=== PATIENT | male | born 1930 | race Caucasian/White ===

== ENCOUNTER 2017-02-04 08:15 | Inpatient (IN) | payer MEDICARE ==
[2017-02-04] MEDS ORDERED: NS 0.9% 1000 ML* 1,000 ML IV ONE (08:37)
--- NOTE | 2017-02-04 09:06 | RAD ---
HISTORY: Weakness COMPARISONS: January 31, 2015 VIEWS:1: Single frontal portable view of the chest at 8:50 AM FINDINGS: LINES AND TUBES: None. CARDIOMEDIASTINAL SILHOUETTE: The cardiomediastinal silhouette is normal for portable technique. PLEURA: The costophrenic angles are sharp. No pleural abnormalities are noted. LUNG PARENCHYMA: There is questionable nodular opacification of left lung base ABDOMEN: The upper abdomen is clear. There is no subphrenic gas. BONES AND SOFT TISSUES: No bone or soft tissue abnormalities are noted. IMPRESSION: QUESTIONABLE NODULAR OPACIFICATION OF LEFT LUNG BASE. WHILE THE DIFFERENTIAL INCLUDES CONSOLIDATION, PULMONARY PARENCHYMAL NEOPLASM IS ALSO WITHIN THE DIFFERENTIAL. RECOMMEND FOLLOW-UP UNTIL RESOLUTION TO EXCLUDE UNDERLYING PULMONARY PARENCHYMAL PATHOLOGY IF THE CLINICAL PRESENTATION IS NOT CONSISTENT WITH PNEUMONIA, OR THERE IS CLINICAL SUSPICION OF NEOPLASM, RECOMMEND CONSIDERATION OF CORRELATION WITH CT OF THE CHEST
[2017-02-04 09:15] LABS: Hematocrit 47 % (42-52); Hemoglobin 15.4 g/dl (14.0-18.0); Mean Corpuscular HGB Conc 33 g/dl (31-36); Mean Corpuscular Hemoglobin 31 pg (27-31); Mean Corpuscular Volume 96 fL (80-94); Mean Platelet Volume 8 um3 (7.4-10.4); Red Blood Count 4.91 10^6/ul (4.0-5.4); Red Cell Distribution Width 14 % (10.5-15); White Blood Count 23.3 10^3/ul (3.5-10.8)
[2017-02-04 09:21] LABS: Add Diff/Slide Review? Slide Review Added; Comments Flag Yes
[2017-02-04 09:28] LABS: Albumin 3.8 g/dL (3.2-5.2); Calcium 9.2 mg/dL (8.6-10.3); EGFR African American 49.7 (>60); EGFR Non-African American 38.7 (>60); Globulin 3.1 g/dL (2-4); Potassium 4.7 mmol/L (3.5-5.0); Total Protein 6.9 g/dL (6.4-8.9)
[2017-02-04 09:29] LABS: C Reactive Protein 59.46 mg/L (< 5.00); Total Bilirubin 0.9 mg/dL (0.2-1.0)
[2017-02-04] MEDS ORDERED: Levofloxacin 750 MG IVPREMIX(* 750 MG/150 ML BAG IVPB ONE ×2 (09:48→12:42)
[2017-02-04 09:52] LABS: Troponin I 0.3 ng/mL (<0.04)
[2017-02-04] MEDS ORDERED: Aspirin Low Dose CHEW TAB* 81 MG PO ONE (10:17)
--- NOTE | 2017-02-04 10:55 | RAD ---
HISTORY: Abnormal chest x-ray, mass COMPARISONS: Chest x-ray dated February 04, 2017 TECHNIQUE: Multiple contiguous axial CT scans of the chest were obtained without intravenous contrast. Coronal and sagittal multiplanar reformations are also submitted for review. FINDINGS: The study is limited by the lack of intravenous contrast. This limits evaluation of the solid organs and vasculature. NECK AND THYROID: The lower neck and thyroid are unremarkable. CHEST WALL: There is no lower cervical, axillary, or supraclavicular lymphadenopathy by size criteria. HEART AND PERICARDIUM: The heart is unremarkable. AORTA AND PULMONARY VASCULATURE: The aorta and pulmonary vasculature are normal. MEDIASTINUM: There is no mediastinal lymphadenopathy by size criteria. STEPHEN: There is no hilar lymphadenopathy by size criteria. AIRWAY AND ESOPHAGUS: The airway is unremarkable, without endobronchial filling defect. The esophagus is grossly normal. LUNG PARENCHYMA: There is a spiculated nodule along the left lung base corresponding to the plain film finding. This measures approximately 2.6 cm in size PLEURA: No pleural abnormalities are noted. UPPER ABDOMEN: The patient is status post cholecystomy. There is a moderate-sized sliding hiatal hernia BONES AND SOFT TISSUES: Degenerative changes are noted along the spine. OTHER: None. IMPRESSION: 2.6 CM SPICULATED NODULE OF THE LEFT LUNG BASE CORRESPONDING TO THE PLAIN FILM FINDING, CONCERNING FOR NEOPLASM. RECOMMEND CONSIDERATION OF CORRELATION WITH PET/CT AND/OR TISSUE SAMPLING.
[2017-02-04 11:51] LABS: Eosinophils % 1 % (0-6); Immature Granulocytes 10 % (0-9); Metamyelocytes % 1 % (0-2); Neutrophil % 88 % (38-83); RBC Morphology Normal (Normal)
[2017-02-04] MEDS ORDERED: NS 0.9% 1000 ML* 1,000 ML IV SCH (12:15)
[2017-02-04] MEDS ORDERED: Albuterol HFA INHALER* 8 gm MDI INH PRN (12:40)
[2017-02-04] MEDS ORDERED: Aspirin EC TAB* 325 MG PO ONE (12:42)
[2017-02-04] MEDS: Heparin VIAL(*) 5000 UNITS/ML VIAL (FIVE THOUSAND) SUBCUT SCH ×2 (13:18→21:40)
[2017-02-04 13:47] LABS: Erythrocyte Sed Rate 22 mm/Hr (0-40)
[2017-02-04 16:02] LABS: Urine Bacteria 1+ (Absent); Urine Bilirubin Negative (Negative); Urine Glucose Negative (Negative); Urine Nitrite Negative (Negative)
--- NOTE | 2017-02-04 17:13 | ED ---
Mike Quintanilla Billy, scribed for Nadir Goodrich MD on 02/04/17 at 0921 . Complex/Multi-Sys Presentation - HPI Summary HPI Summary: Patient is an 86 year-old male coming to [facility] for evaluation of weakness since yesterday afternoon. He states that he had cold-like symptoms 3 days ago. Yesterday afternoon, he felt like he was "totally drained of strength." He felt nauseated but had no abdominal pain, vomiting, diarrhea, or constipation. Denies fevers, chills, chest pain, or shortness of breath. Denies URI symptoms at this time. Positive edema to the lower extremities. He woke up with a dry mouth this morning. - History Of Current Complaint Chief Complaint: EDGeneral Time Seen by Provider: 02/04/17 08:20 Hx Obtained From: Patient Onset/Duration: Gradual Onset Timing: Constant Severity Currently: Moderate Severity Initially: Moderate Aggravating Factor(s): none Alleviating Factor(s): none Associated Signs And Symptoms: Positive: Weakness, Nausea. Negative: SOB, Chest Pain, Vomiting, Diarrhea, Abdominal Pain, Fever - Allergies/Home Medications Allergies/Adverse Reactions: Allergies Allergy/AdvReac Type Severity Reaction Status Date / Time Atorvastatin [From Lipitor] Allergy Unknown Unknown Verified 09/19/13 00:12 Reaction Details Clopidogrel Allergy Rash Verified 09/17/13 14:21 Home Medications: Home Medications Mometasone 220 MCG MDI * [Asmanex 220 MCG MDI *] 1 puff INH BID 02/04/17 [ History Confirmed 02/04/17] PMH/Surg Hx/FS Hx/Imm Hx Cardiovascular History: Reports: Hx Coronary Artery Disease, Hx Hypertension Denies: Hx Congestive Heart Failure Respiratory History: Reports: Hx Asthma History: Reports: Hx Kidney Stones Musculoskeletal History: Reports: Hx Arthritis - Surgical History Surgery Procedure, Year, and Place: cholecystectomy. tonsillectomy. right cataract removal Infectious Disease History: No Infectious Disease History: Denies: Traveled Outside the [place] in Last 30 Days - Family History Family History: His father at age 88 of congestive heart failure, only had initial symptoms of heart disease maybe one year earlier. No one else in the family has heart disease. His mother of some cancer at age 42. - Social History Alcohol Use: None Substance Use Type: Reports: None Smoking Status (MU): Never Smoked Tobacco Review of Systems Constitutional: Other - dry mouth Negative: Fever, Chills Negative: Sore Throat, Ear Ache, Nasal Discharge Negative: Chest Pain Negative: Shortness Of Breath, Cough Positive: Nausea. Negative: Vomiting, Diarrhea Positive: Edema Positive: Weakness All Other Systems Reviewed And Are Negative: Yes Physical Exam - Summary Physical Exam Summary: VITAL SIGNS: Reviewed. GENERAL: Patient is an elderly fragile male who is lying comfortable in the stretcher. Patient is not in any acute respiratory distress. HEAD AND FACE: No signs of trauma. No ecchymosis, hematomas or skull depressions. No sinus tenderness. EYES: PERRLA, EOMI x 2, No injected conjunctiva, no nystagmus. EARS: Hearing grossly intact. Ear canals and tympanic membranes are within normal limits. MOUTH: Oropharynx within normal limits. NECK: Supple, trachea is midline, no adenopathy, no JVD, no carotid bruit, no c- spine tenderness, neck with full ROM. CHEST: Symmetric, no tenderness at palpation LUNGS: Clear to auscultation bilaterally. No wheezing or crackles. CVS: Regular rate and rhythm, S1 and S2 present, no murmurs or gallops appreciated. ABDOMEN: Soft, non-tender. No signs of distention. No rebound no guarding, and no masses palpated. Bowel sounds are normal. EXTREMITIES: FROM in all major joints, no edema, no cyanosis or clubbing. NEURO: Alert and oriented x 3. No acute neurological deficits. Speech is normal and follows commands. SKIN: Dry and warm Triage Information Reviewed: Yes Vital Signs On Initial Exam: Initial Vitals Temp Pulse Resp BP Pulse Ox 98.1 F 77 18 99/46 94 02/04/17 08:16 02/04/17 08:16 02/04/17 08:16 02/04/17 08:16 02/04/17 08:16 Vital Signs Reviewed: Yes - [place] Coma Scale Coma Scale Total: 15 Diagnostics - Vital Signs Vital Signs Temp Pulse Resp BP Pulse Ox 02/04/17 08:22 98.1 F 77 18 99/46 94 02/04/17 08:16 98.1 F 77 18 99/46 94 - Laboratory Lab Results: Lab Results 02/04/17 02/04/17 02/04/17 Range/Units 09:00 09:00 09:00 WBC 23.3 H (3.5-10.8) 10^3/ul RBC 4.91 (4.0-5.4) 10^6/ul Hgb 15.4 (14.0-18.0) g/dl Hct 47 (42-52) % MCV 96 H (80-94) fL MCH 31 (27-31) pg MCHC 33 (31-36) g/dl RDW 14 (10.5-15) % Plt Count 192 (150-450) 10^3/ul MPV 8 (7.4-10.4) um3 Neut % (Auto) 92.7 H (38-83) % Lymph % (Auto) 1.5 L (25-47) % Ferry % (Auto) 5.5 (1-9) % Eos % (Auto) 0 (0-6) % Baso % (Auto) 0.3 (0-2) % Absolute Neuts (auto) 21.6 H (1.5-7.7) 10^3/ul Absolute Lymphs (auto) 0.4 L (1.0-4.8) 10^3/ul Absolute Monos (auto) 1.3 H (0-0.8) 10^3/ul Absolute Eos (auto) 0 (0-0.6) 10^3/ul Absolute Basos (auto) 0.1 (0-0.2) 10^3/ul Absolute Nucleated RBC 0 10^3/ul Nucleated RBC % 0 ESR Pending INR (Anticoag Therapy) 1.02 (0.89-1.11) APTT 29.2 (26.0-36.3) seconds Sodium 137 (133-145) mmol/L Potassium 4.7 (3.5-5.0) mmol/L Chloride 100 L (101-111) mmol/L Carbon Dioxide 28 (22-32) mmol/L Anion Gap 9 (2-11) mmol/L BUN 27 H (6-24) mg/dL Creatinine 1.69 H (0.67-1.17) mg/dL Est GFR ( Amer) 49.7 (>60) Est GFR (Non-Af Amer) 38.7 (>60) BUN/Creatinine Ratio 16.0 (8-20) Glucose 132 H (70-100) mg/dL Lactic Acid (0.5-2.0) mmol/L Calcium 9.2 (8.6-10.3) mg/dL Total Bilirubin 0.90 (0.2-1.0) mg/dL AST 25 (13-39) U/L ALT 21 (7-52) U/L Alkaline Phosphatase 77 (34-104) U/L Total Creatine Kinase 172 (10-223) U/L Troponin I Pending C-Reactive Protein 59.46 H (< 5.00) mg/L B-Natriuretic Peptide ( - 100) pg/mL Total Protein 6.9 (6.4-8.9) g/dL Albumin 3.8 (3.2-5.2) g/dL Globulin 3.1 (2-4) g/dL Albumin/Globulin Ratio 1.2 (1-3) 02/04/17 02/04/17 Range/Units 09:00 09:00 WBC (3.5-10.8) 10^3/ul RBC (4.0-5.4) 10^6/ul Hgb (14.0-18.0) g/dl Hct (42-52) % MCV (80-94) fL MCH (27-31) pg MCHC (31-36) g/dl RDW (10.5-15) % Plt Count (150-450) 10^3/ul MPV (7.4-10.4) um3 Neut % (Auto) (38-83) % Lymph % (Auto) (25-47) % Ferry % (Auto) (1-9) % Eos % (Auto) (0-6) % Baso % (Auto) (0-2) % Absolute Neuts (auto) (1.5-7.7) 10^3/ul Absolute Lymphs (auto) (1.0-4.8) 10^3/ul Absolute Monos (auto) (0-0.8) 10^3/ul Absolute Eos (auto) (0-0.6) 10^3/ul Absolute Basos (auto) (0-0.2) 10^3/ul Absolute Nucleated RBC 10^3/ul Nucleated RBC % ESR INR (Anticoag Therapy) (0.89-1.11) APTT (26.0-36.3) seconds Sodium (133-145) mmol/L Potassium (3.5-5.0) mmol/L Chloride (101-111) mmol/L Carbon Dioxide (22-32) mmol/L Anion Gap (2-11) mmol/L BUN (6-24) mg/dL Creatinine (0.67-1.17) mg/dL Est GFR ( Amer) (>60) Est GFR (Non-Af Amer) (>60) BUN/Creatinine Ratio (8-20) Glucose (70-100) mg/dL Lactic Acid 1.9 (0.5-2.0) mmol/L Calcium (8.6-10.3) mg/dL Total Bilirubin (0.2-1.0) mg/dL AST (13-39) U/L ALT (7-52) U/L Alkaline Phosphatase (34-104) U/L Total Creatine Kinase (10-223) U/L Troponin I C-Reactive Protein (< 5.00) mg/L B-Natriuretic Peptide 173 H ( - 100) pg/mL Total Protein (6.4-8.9) g/dL Albumin (3.2-5.2) g/dL Globulin (2-4) g/dL Albumin/Globulin Ratio (1-3) Result Diagrams: 02/04/17 09:00 02/04/17 09:00 Lab Statement: Any lab studies that have been ordered have been reviewed, and results considered in the medical decision making process. - Radiology CXR Radiology Interpretation Completed By: Radiologist - QUESTIONABLE NODULAR OPACIFICATION OF LEFT LUNG BASE. WHILE THE DIFFERENTIAL INCLUDES CONSOLIDATION, PULMONARY PARENCHYMAL NEOPLASM IS ALSO WITHIN THE DIFFERENTIAL. RECOMMEND FOLLOW -UP UNTIL RESOLUTION TO EXCLUDE UNDERLYING PULMONARY PARENCHYMAL PATHOLOGY IF THE CLINICAL PRESENTATION IS NOT CONSISTENT WITH PNEUMONIA, OR THERE IS CLINICAL SUSPICION OF NEOPLASM, RECOMMEND CONSIDERATION OF CORRELATION WITH CT OF THE CHEST - EKG 0953 EKG Interpretation: NSR 70 bpm, no STEMI Complex Multi-Symp Course/Dx Assessment/Plan: Patient is an 86 year-old male coming to [facility] for evaluation of weakness since yesterday afternoon. He states that he had cold-like symptoms 3 days ago. Yesterday afternoon, he felt like he was "totally drained of strength." He felt nauseated but had no abdominal pain, vomiting, diarrhea, or constipation. Denies fevers, chills, chest pain, or shortness of breath. Denies URI symptoms at this time. Positive edema to the lower extremities. He woke up with a dry mouth this morning. Bloodwork shows WBC of 23.3 with 9 bands and acute renal failure with BUN of 27 and creatinine of 1.69. The patient's troponin was 0.30 and BNP 173. Influenza A and B are negative. CXR shows findings as read by the radiologist: "Questionable nodular opacification of left lung base. While the differential includes consolidation, pulmonary parenchymal neoplasm is also within the differential. Recommend follow-up until resolution to exclude underlying pulmonary parenchymal pathology if the clinical presentation is not consistent with pneumonia, or there is clinical suspicion of neoplasm, recommend consideration of correlation with CT of the chest." In the ED course, the patient was given levaquin for pneumonia and also ASA for the acute troponin. I discussed my physical exam findings with Dr. Turner who accepted the patient for admission. I have asked multiple times for the patient to produce a urine sample, however he has not been able to do so. I asked the patient if we could get a cath urine, however the patient declined. He is hemodynamically stable, A&Ox3. - Diagnoses Differential Diagnoses/HQI/PQRI: Other - Pneumonia, Bronchitis Provider Diagnoses: Pneumonia, Increase troponin r/o ACS, Renal insufficiency - Physician Notifications Discussed Care Of Patient With: Dr. Turner (hospitalist) at 1015: accepts admission. Discharge - Discharge Plan Condition: Stable Disposition: ADMITTED TO [facility] documentation as recorded by the Mike bolton Billy accurately reflects the service I personally performed and the decisions made by me, Nadir Goordich MD.
--- NOTE | 2017-02-04 17:33 | HP ---
HISTORY AND PHYSICAL: DATE OF ADMISSION: 02/04/17 PRIMARY CARE PROVIDER: Gwyn Ghosh MD ATTENDING PHYSICIAN: Meng Turner MD* (dictated by Kenyatta Leos NP) CHIEF COMPLAINT: Weakness. HISTORY OF PRESENT ILLNESS: Mr. Hogue is an 86-year-old male with past medical history significant for coronary artery disease, who presented to the emergency room with complaints of weakness and cold symptoms that started 3 days ago. The patient reports his cold symptoms as a runny nose and sneezing. Yesterday, he reports nausea and chills. He also had a temperature of 101 at home. The patient states that normally, he has some difficulty with ambulation and normally walks with a walker, but has felt too weak to be ambulating with his walker this week. The patient denies any recent sick contacts or people with similar symptoms. He denies any chest pain, cough, shortness of breath, diarrhea, urinary symptoms such as dysuria. He reports some urinary incontinence at baseline. He reports a normal appetite. He denies any recent weight loss. Due to the concern of the patient's continued weakness, he decided to present to the emergency room for further evaluation of his symptoms. While in the emergency room, the patient received IV fluids. He had labs drawn which were significant for a white blood cell count of 23.3. He had 9 bands. He had an elevated BUN and creatinine of 27 and 1.69. The patient was also found to have an elevated troponin of 0.30, CRP of 59.46, and BNP of 173. The patient had a chest x-ray showing a questionable nodular opacification of the left lung base. The patient had an EKG showing normal sinus rhythm with a rate of 70. This EKG was similar to previous EKG from 01/31/15. There are no acute signs of ischemia. Based off the patient's presentation, the hospitalists were asked to evaluate the patient for admission. PAST MEDICAL HISTORY: 1. Coronary artery disease. 2. Hypertension. 3. Hyperlipidemia. 4. Asthma. PAST SURGICAL HISTORY: 1. Status post cholecystectomy. 2. Status post tonsillectomy. 3. Status post right cataract extraction. 4. Status post cardiac catheterization with a stent placement approximately 15 years ago. HOME MEDICATIONS: Include: 1. Simvastatin 20 mg oral daily. 2. Vitamin D 400 units oral daily. 3. Atenolol 12.5 mg oral daily. 4. Aspirin 81 mg oral daily. 5. Albuterol 2 puffs inhalation every 4 hours as needed for shortness of breath or wheeze. 6. Asmanex 220 mcg in 1 puff inhalation twice daily. ALLERGIES: ATORVASTATIN and PLAVIX. FAMILY HISTORY: The patient's father passed from heart failure at age 89. The patient's mother had a history of breast cancer. The patient's son passed from colon cancer. He denies any family history of diabetes mellitus. SOCIAL HISTORY: The patient denies tobacco, alcohol, or recreational drug use. He is a retired photo technologist. He lives with his , Yancy Hogue, who will be his surrogate decision maker in the event he is unable to make decisions for himself. If Yancy is unavailable, his son Wali Hogue will be his surrogate decision maker. REVIEW OF SYSTEMS: I performed a 14-point review of systems. All the pertinent positives and negatives are mentioned in the history of present illness. The remaining review of systems are negative. PHYSICAL EXAMINATION GENERAL APPEARANCE: The patient is alert and pleasant, appears to be in no acute distress. VITAL SIGNS: Temperature 98.1, heart rate 73, respiratory rate 18, O2 sat 97% on room air, blood pressure 112/56. HEENT: Normocephalic, atraumatic. Pupils are equal and reactive to light. Extraocular movements are intact. RESPIRATORY: There is no accessory muscle use and the lungs are clear to auscultation bilaterally. CARDIOVASCULAR: Regular rate and rhythm. S1 and S2 are present. There are no murmurs, rubs, or gallops heard. ABDOMEN: Soft, nontender, nondistended. There are bowel sounds present x4. EXTREMITIES: There is 1 to 2+ bilateral lower extremity edema. MUSCULOSKELETAL: There is no clubbing or cyanosis noted. The patient exhibits good strength in all extremities. NEUROLOGIC: The patient is alert and oriented x4. Cranial nerves II through XII are grossly intact. PSYCHOLOGICAL: The patient is calm and cooperative. SKIN: There are no rashes or abnormalities seen. DIAGNOSTIC STUDIES/LABORATORY DATA: Sodium 137, potassium 4.7, chloride 100, CO2 28, BUN 27, creatinine 1.69, and glucose 132. While blood cell count 23.3, hemoglobin 15.4, hematocrit 96, and platelet count 192. Troponin 0.30, CRP 59.46, BNP 173. Influenza A and B negative. EKG shows a normal sinus rhythm with a rate of 70. There are no signs of acute ischemia. This EKG is similar to previous EKG from 01/31/15. Chest x-ray from today. Radiologist's impression: Questionable nodular opacification of left lung base, the differential includes consolidation. Pulmonary parenchymal neoplasm is also within the differential. Recommend followup until resolution to exclude underlying pulmonary parenchymal pathology. Chest CT from today. A 2.6 cm spiculated nodule of the left lung base corresponding to the plain film findings. Concerning for neoplasm. IMPRESSION: Mr. Hogue is an 86-year-old male with past medical history significant for coronary artery disease, hypertension, hyperlipidemia, and asthma, who presented to the hospital with complaints of weakness. He will be admitted as an observation for weakness and possible lung mass. ASSESSMENT/PLAN: 1. Weakness. We will give the patient IV hydration. We will ask Physical Therapy for an evaluation after we complete trending his troponins. 2. New left lung nodule. The patient will need a fine needle aspiration biopsy for further evaluation of this lung nodule. The patient states that he has never had a colonoscopy. We will check an abdomen and pelvis CT to evaluate for metastatic disease. 3. Acute kidney injury. We will give the patient IV hydration and recheck his labs in the morning. 4. Elevated troponins. The patient denies any chest pain. We will trend his troponins, monitor him on telemetry, and check an echo in the morning. His EKG does not show signs of acute ischemia. The patient is already on aspirin, statin, and beta- lucero. 5. History of coronary artery disease. The patient will be continued on his home statin, beta-lucero, and aspirin. 6. Fluids, electrolytes and nutrition. Heart healthy diet. 7. Code status: Full code. 8. DVT prophylaxis: The patient is at highest risk and will have subcu heparin. 9. Disposition. Observation. TIME SPENT: The time for this admission was 60 minutes and greater than half of that was spent with the patient and his family discussing medications, past medical history, and the events leading up to his arrival today and performing the physical examination. The case has been reviewed with the attending, Dr. Turner, who agrees with the plan of care. Reviewed by KARELY COX 02/04/17 1741 CC: Gwyn Ghosh MD * [id number]/CPS #: [id number] MTDD
[2017-02-04] MEDS ORDERED: Acetaminophen TAB* 325 MG PO PRN (17:48)
--- NOTE | 2017-02-04 18:31 | RAD ---
CLINICAL HISTORY: Left lung nodule COMPARISON: Chest CT dated February 04, 2017 TECHNIQUE: Multiple contiguous axial CT scans were obtained of the abdomen and pelvis, without intravenous contrast enhancement. Coronal and sagittal multiplanar reformations are submitted for review. Oral contrast was administered. FINDINGS: The study is limited by the lack of intravenous contrast. This limits evaluation of the solid organs and vasculature. LUNG BASES: Again noted is a spiculated nodule of the left lung base LIVER: On axial image 11, there is a 0.4 cm in low-attenuation lesion of the left lobe of liver that is too small to definitively characterize BILE DUCTS: Discectomy GALLBLADDER: The gallbladder is not visualized. Surgical clips are noted in the gallbladder fossa. PANCREAS: The pancreas is normal, without mass or ductal dilatation. SPLEEN: Normal in size and appearance. UPPER GI TRACT: Evaluation of the gastrointestinal tract is limited by incomplete gastric distention. There is a moderate-sized sliding hiatal hernia SMALL BOWEL AND MESENTERY: The small bowel is normal in contour, course, and caliber. There is no obstruction or dilatation. COLON: There are multiple diverticula of the sigmoid colon. There is no pericolonic inflammatory change. ADRENALS: Normal bilaterally. KIDNEYS: Multiple renal cysts are noted bilaterally. There is moderate pelvocaliectasis and and hydroureter on the right BLADDER: The bladder is distended. There are multiple small bladder diverticula. PELVIC ORGANS: The prostate gland is markedly enlarged. The seminal vesicles are symmetric. AORTA: There is atherosclerosis of the abdominal aorta without aneurysmal dilatation IVC: Unremarkable LYMPH NODES: There is no lymphadenopathy by size criteria. ABDOMINAL WALL: There is no evidence for abdominal wall hernia. BONES AND SOFT TISSUES: Degenerative changes are noted of the spine OTHER: None IMPRESSION: 1. AGAIN NOTED IS SPICULATED NODULE OF THE LEFT LUNG BASE. 2. THE PROSTATE GLAND IS MARKEDLY ENLARGED. 3. THERE ARE MULTIPLE BLADDER DIVERTICULA. THERE IS RIGHT-SIDED HYDRONEPHROSIS. 4. ATHEROSCLEROSIS. 5. DIVERTICULOSIS. 6. HIATAL HERNIA 7. 0.4 CM LOW-ATTENUATION LESION OF THE LIVER, TOO SMALL TO DEFINITIVELY CHARACTERIZE
[2017-02-04] MEDS: Mometasone 220 MCG MDI INH SCH (21:26)
[2017-02-05] MEDS: Heparin VIAL(*) 5000 UNITS/ML VIAL (FIVE THOUSAND) SUBCUT SCH ×3 (05:08→20:19)
[2017-02-05 06:46] LABS: Hematocrit 42 % (42-52); Hemoglobin 13.8 g/dl (14.0-18.0); Mean Corpuscular HGB Conc 33 g/dl (31-36); Mean Corpuscular Hemoglobin 32 pg (27-31); Mean Corpuscular Volume 97 fL (80-94); Mean Platelet Volume 8 um3 (7.4-10.4); Red Cell Distribution Width 14 % (10.5-15); White Blood Count 11.6 10^3/ul (3.5-10.8)
[2017-02-05 06:57] LABS: BUN/Creatinine Ratio 19.3 (8-20); EGFR African American 64.4 (>60); EGFR Non-African American 50.1 (>60); Potassium 3.7 mmol/L (3.5-5.0)
[2017-02-05] MEDS: Mometasone 220 MCG MDI INH SCH ×2 (08:20→20:04)
[2017-02-05] MEDS: Atenolol TAB* 25 MG PO SCH (09:10)
[2017-02-05] MEDS: Aspirin EC Low Dose* 81 MG TAB.EC PO SCH (09:10)
[2017-02-05] MEDS: SIMVASTATIN 20 MG PO SCH (09:10)
[2017-02-05] MEDS: Cholecalciferol TAB* 400 UNIT PO SCH (09:10)
--- NOTE | 2017-02-05 09:35 | PN ---
Subjective Date of Service: 02/05/17 Interval History: Patient seen and examined at bedside. Offers no acute concerns. Denies CP, SOB, abd pain, n/v, dysuria. He reports that he has noticed a "chandana hue" to his urine on occasion. He states he has BLE edema at baseline. Mr. Hogue initially presented with weakness and URI symptoms, both of which are improving. He reports being able to get OOB with his walker this AM. Family History: Unchanged from Admission Social History: Unchanged from Admission Past Medical History: Unchanged from Admission Objective Active Medications: Acetaminophen (Tylenol Tab*) 650 mg PO Q4H PRN PRN Reason: FEVER/PAIN Albuterol (Ventolin Hfa Inhaler*) 2 puff INH Q4H PRN PRN Reason: WHEEZING Aspirin (Aspirin Ec Low Dose*) 81 mg PO DAILY [facility] Last Admin: 02/05/17 09:10 Dose: 81 mg Atenolol (Tenormin Tab*) 12.5 mg PO DAILY [facility] Last Admin: 02/05/17 09:10 Dose: 12.5 mg Cholecalciferol (Vitamin D Tab*) 400 unit PO DAILY [facility] Last Admin: 02/05/17 09:10 Dose: 400 unit Heparin Sodium (Porcine) (Heparin Vial(*)) 5,000 units SUBCUT Q8HR [facility] Last Admin: 02/05/17 05:08 Dose: 5,000 units Mometasone Furoate (Asmanex 220 Mcg Mdi *) 1 puff INH BID [facility] PRN Reason: Protocol Last Admin: 02/05/17 08:20 Dose: 1 puff Simvastatin (Zocor(Nf)) 20 mg PO DAILY [facility] Last Admin: 02/05/17 09:10 Dose: 20 mg Vital Signs 02/04/17 02/04/17 02/04/17 12:19 16:04 16:44 Temperature 98.5 F 99.1 F 100.0 F Pulse Rate 70 70 81 Respiratory 18 20 26 Rate Blood Pressure 119/57 111/57 (mmHg) O2 Sat by Pulse 97 98 100 Oximetry 02/04/17 02/04/17 02/04/17 20:00 20:39 21:31 Temperature 98.5 F Pulse Rate 74 82 Respiratory 22 22 18 Rate Blood Pressure 102/51 (mmHg) O2 Sat by Pulse 94 91 Oximetry 0502/05/17 02/05/17 00:21 04:31 08:22 Temperature 97.9 F 98.0 F Pulse Rate 66 62 82 Respiratory 16 16 18 Rate Blood Pressure 94/51 104/59 (mmHg) O2 Sat by Pulse 94 96 96 Oximetry Oxygen Devices in Use Now: None Appearance: Elderly male, sitting up in bed, NAD Eyes: PERRLA Ears/Nose/Mouth/Throat: Mucous Membranes Moist Neck: NL Appearance and Movements; NL JVP Respiratory: Symmetrical Chest Expansion and Respiratory Effort, Clear to Auscultation Cardiovascular: NL Sounds; No Murmurs; No JVD, RRR Abdominal: NL Sounds; No Tenderness; No Distention Extremities: - - 1+ BLE edema Neurological: Alert and Oriented x 3 Lines/Tubes/Other Access: Clean, Dry and Intact Peripheral IV Nutrition: Taking PO's Result Diagrams: 02/05/17 06:05 02/05/17 06:05 Additional Lab and Data: Lab Results 02/04/17 02/04/17 02/04/17 Range/Units 09:00 09:00 09:00 WBC 23.3 H (3.5-10.8) 10^3/ul RBC 4.91 (4.0-5.4) 10^6/ul Hgb 15.4 (14.0-18.0) g/dl Hct 47 (42-52) % MCV 96 H (80-94) fL MCH 31 (27-31) pg MCHC 33 (31-36) g/dl RDW 14 (10.5-15) % Plt Count 192 (150-450) 10^3/ul MPV 8 (7.4-10.4) um3 Neut % (Auto) 92.7 H (38-83) % Lymph % (Auto) 1.5 L (25-47) % [place] % (Auto) 5.5 (1-9) % Eos % (Auto) 0 (0-6) % Baso % (Auto) 0.3 (0-2) % Absolute Neuts (auto) 21.6 H (1.5-7.7) 10^3/ul Absolute Lymphs (auto) 0.4 L (1.0-4.8) 10^3/ul Absolute Monos (auto) 1.3 H (0-0.8) 10^3/ul Absolute Eos (auto) 0 (0-0.6) 10^3/ul Absolute Basos (auto) 0.1 (0-0.2) 10^3/ul Absolute Nucleated RBC 0 10^3/ul Nucleated RBC % 0 ESR Pending INR (Anticoag Therapy) 1.02 (0.89-1.11) APTT 29.2 (26.0-36.3) seconds Sodium 137 (133-145) mmol/L Potassium 4.7 (3.5-5.0) mmol/L Chloride 100 L (101-111) mmol/L Carbon Dioxide 28 (22-32) mmol/L Anion Gap 9 (2-11) mmol/L BUN 27 H (6-24) mg/dL Creatinine 1.69 H (0.67-1.17) mg/dL Est GFR ( Amer) 49.7 (>60) Est GFR (Non-Af Amer) 38.7 (>60) BUN/Creatinine Ratio 16.0 (8-20) Glucose 132 H (70-100) mg/dL Lactic Acid (0.5-2.0) mmol/L Calcium 9.2 (8.6-10.3) mg/dL Total Bilirubin 0.90 (0.2-1.0) mg/dL AST 25 (13-39) U/L ALT 21 (7-52) U/L Alkaline Phosphatase 77 (34-104) U/L Total Creatine Kinase 172 (10-223) U/L Troponin I Pending C-Reactive Protein 59.46 H (< 5.00) mg/L B-Natriuretic Peptide ( - 100) pg/mL Total Protein 6.9 (6.4-8.9) g/dL Albumin 3.8 (3.2-5.2) g/dL Globulin 3.1 (2-4) g/dL Albumin/Globulin Ratio 1.2 (1-3) 02/04/17 02/04/17 Range/Units 09:00 09:00 WBC (3.5-10.8) 10^3/ul RBC (4.0-5.4) 10^6/ul Hgb (14.0-18.0) g/dl Hct (42-52) % MCV (80-94) fL MCH (27-31) pg MCHC (31-36) g/dl RDW (10.5-15) % Plt Count (150-450) 10^3/ul MPV (7.4-10.4) um3 Neut % (Auto) (38-83) % Lymph % (Auto) (25-47) % [place] % (Auto) (1-9) % Eos % (Auto) (0-6) % Baso % (Auto) (0-2) % Absolute Neuts (auto) (1.5-7.7) 10^3/ul Absolute Lymphs (auto) (1.0-4.8) 10^3/ul Absolute Monos (auto) (0-0.8) 10^3/ul Absolute Eos (auto) (0-0.6) 10^3/ul Absolute Basos (auto) (0-0.2) 10^3/ul Absolute Nucleated RBC 10^3/ul Nucleated RBC % ESR INR (Anticoag Therapy) (0.89-1.11) APTT (26.0-36.3) seconds Sodium (133-145) mmol/L Potassium (3.5-5.0) mmol/L Chloride (101-111) mmol/L Carbon Dioxide (22-32) mmol/L Anion Gap (2-11) mmol/L BUN (6-24) mg/dL Creatinine (0.67-1.17) mg/dL Est GFR ( Amer) (>60) Est GFR (Non-Af Amer) (>60) BUN/Creatinine Ratio (8-20) Glucose (70-100) mg/dL Lactic Acid 1.9 (0.5-2.0) mmol/L Calcium (8.6-10.3) mg/dL Total Bilirubin (0.2-1.0) mg/dL AST (13-39) U/L ALT (7-52) U/L Alkaline Phosphatase (34-104) U/L Total Creatine Kinase (10-223) U/L Troponin I C-Reactive Protein (< 5.00) mg/L B-Natriuretic Peptide 173 H ( - 100) pg/mL Total Protein (6.4-8.9) g/dL Albumin (3.2-5.2) g/dL Globulin (2-4) g/dL Albumin/Globulin Ratio (1-3) Microbiology and Other Data: Microbiology 02/04/17 11:15 Influenza Types A,B Antigen (JAMILAH) - Final Nasal Specimen received for Influenza A/B Molecular testing Assess/Plan/Problems-Billing Assessment: Mr. Hogue is an 86 yo male with a PMH of CAD, HTN, HLD, and asthma who presented to the ED on 02/04 with concern for weakness and URI symptoms and was found to have concern for lung mass, ALEJANDRINA, and elevated troponins. - Patient Problems (1) Weakness Code(s): R53.1 - WEAKNESS Comment: Improved Appears secondary to dehydration and acute illness PT eval requested (2) Pulmonary nodule, left Code(s): R91.1 - SOLITARY PULMONARY NODULE Comment: CT abd/pelvis negative for other concerning lesions Outpatient follow-up with PCP for FNA of left lower lobe nodule (3) Acute kidney injury Code(s): N17.9 - ACUTE KIDNEY FAILURE, UNSPECIFIED Comment: Improving, suspect acute on chronic injury. Patient endorses drinking very well, making hypovolemia a less likely cause. Will check FENa and renal U/S, as patient has hydronephrosis and bladder distention. (4) Elevated troponin Code(s): R74.8 - ABNORMAL LEVELS OF OTHER SERUM ENZYMES Comment: Echocardiogram pending Patient denies chest pain Troponin peaked at 0.49 (5) CAD (coronary artery disease) Code(s): I25.10 - ATHSCL HEART DISEASE OF [place] CORONARY ARTERY W/O ANG PCTRS Comment: Continue ASA, atenolol, and simvastatin. (6) HTN (hypertension) Code(s): I10 - ESSENTIAL (PRIMARY) HYPERTENSION Comment: Normotensive Continue atenolol. (7) HLD (hyperlipidemia) Code(s): E78.5 - HYPERLIPIDEMIA, UNSPECIFIED Comment: Continue simvastatin. (8) DVT prophylaxis Code(s): [id number] - Comment: SQ heparin (9) Full code status Code(s): Z78.9 - OTHER SPECIFIED HEALTH STATUS
[2017-02-05] MEDS ORDERED: NS 0.9% 500 ML BAG* 500 ML IV ONE (10:36)
[2017-02-05 10:37] LABS: Troponin I 0.31 ng/mL (<0.04)
--- NOTE | 2017-02-05 16:24 | RAD ---
INDICATION: Acute renal failure CT February 04, 2017 COMPARISON: CT February 04, 2017 TECHNIQUE: Longitudinal and transverse scans of the kidneys were obtained. FINDINGS: Kidneys: The kidneys are are echogenic compatible with medical renal disease. There is moderate right-sided hydronephrosis. There is no left-sided hydronephrosis. There are multiple left-sided renal cyst better evaluated on recent CT imaging. The right kidney measures 10.9 x 4.7 x 5.4 cm and the left kidney 10.7 x 5.5 x 6.3 cm. Other: The bladder is distended with a prevoid volume of 1173 mL similar to the prior CT and there is a bladder diverticulum. Earlier CT imaging as also shown marked prostamegaly. There is faint visualization the right ureteral jet. Left ureteral jet is not seen. IMPRESSION: MODERATE RIGHT-SIDED HYDRONEPHROSIS LIKELY ON THE BASIS OF BLADDER OUTLET OBSTRUCTION. NO LEFT-SIDED HYDRONEPHROSIS, HOWEVER. THE BLADDER IS NOTED TO BE DISTENDED.
[2017-02-05] MEDS ORDERED: cefTRIAXone VIAL(*) 1,000 MG in NS 0.9% 50 ML* 50 ML IVPB SCH (20:00)
--- NOTE | 2017-02-05 22:53 | ECHO ---
Patient: DEANGELO HARLEY [facility] Rec#: [id number] : 1930 Date: 02/05/2017 Age: 86y Height: 175.3 cm / 69.0 in Weight: 93 kg / 205.0 lbs Sex: M BSA: 2.1 Room#: 452 Admit Date#: 02/04/2017 Type: Inpatient Referring: Kenyatta Whitaker NP Reading: Nelson Wilson MD Ncqa Specialist: Juliana Avelar RN RDCS CC: Gwyn Ghosh MD Transthoracic Echocardiogram Indication: Elevated troponin levels, SOB BP: 104/59 HR: 70 Rhythm: NSR Findings History: CAD, PCI, HTN, HLD, asthma Technical Comments: The study quality is fair. The study is technically limited due to poor acoustic windows. The study is technically limited due to patient body habitus. Completed at 1400. Left Ventricle: The left ventricular chamber size is normal. Global left ventricular wall motion and contractility are within normal limits. Left ventricular systolic function is at the lower limits of normal. The estimated ejection fraction is 50-55%. The left ventricular diastolic filling pattern is consistent with pseudonormalization. Left Atrium: The left atrial chamber size is normal. Right Ventricle: The right ventricular cavity size is normal. The right ventricular global systolic function is mildly reduced. Right Atrium: The right atrial cavity size is normal. Aortic Valve: The aortic valve structure is not well visualized. The aortic valve leaflets are mildly thickened. There is a trace of aortic regurgitation. There is no evidence of aortic stenosis. Mitral Valve: The mitral valve leaflets are mildly thickened. There is a trace of mitral regurgitation. There is no evidence of mitral stenosis. Tricuspid Valve: The tricuspid valve leaflets are normal. There is trace tricuspid regurgitation. No pulmonary hypertension is noted. Pulmonic Valve: The pulmonic valve structure is not well visualized. Pericardium: There is no significant pericardial effusion. A pericardial fat pad is visualized. Aorta: There is mild dilatation of the ascending aorta. There is no dilatation of the aortic arch. There is mild dilatation of the aortic root. Pulmonary Artery: The main pulmonary artery is not well visualized. Venous: The inferior vena cava is dilated. There is a greater than 50% respiratory change in the inferior vena cava dimension. Conclusions Global left ventricular wall motion and contractility are within normal limits. Left ventricular systolic function is at the lower limits of normal. The estimated ejection fraction is 50-55%. The left ventricular diastolic filling pattern is consistent with pseudonormalization. The aortic valve leaflets are mildly thickened. There is a trace of aortic regurgitation. There is no evidence of aortic stenosis. There is a trace of mitral regurgitation. There is trace tricuspid regurgitation. No pulmonary hypertension is noted. There is no significant pericardial effusion. There is mild dilatation of the ascending aorta. Measurements Name Value Normal Range RVDdMajor (2D) 3.5 cm (2.2 - 4.4) RAd ISD 4CH 5.6 cm (3.4 - 4.9) RA (A4C)W 4.5 cm (2.9 - 4.6) IVSd (2D) 0.9 cm (0.6 - 1) LVPWd (2D) 0.9 cm (0.6 - 1) LVIDd (2D) 4.2 cm (3.6 - 5.4) Aortic Annulus 2.7 cm (1.4 - 2.6) Ao root diameter (2D) 3.6 cm (2.1 - 3.5) Ascending Ao 3.5 cm (2.1 - 3.4) Aortic arch 2.3 cm (1.8 - 3.4) LA dimension (AP) 2D 3.7 cm (2.3 - 3.8) LAd ISD 4CH 5.3 cm (2.9 - 5.3) LA ISD 4CH W 3.9 cm (2.5 - 4.5) Name Value Normal Range LA ESV SP 4CH (A/L) 56 ml - LA ESV SP 2CH (A/L) 60 ml - LA ESV BP (A/L) 59 ml - LA ESV BP (A/L) index 28 ml/m2 - LA ESV SP 4CH (MOD) 54 ml - LA ESV SP 2CH (MOD) 57 ml - Name Value Normal Range MV E-wave Vmax 0.74 m/sec - MV deceleration time 279 msec - MV A-wave Vmax 0.84 m/sec - MV E:A ratio 0.9 ratio - LV septal e' Vmax 0.07 m/sec - LV lateral e' Vmax 0.07 m/sec - LV E:e' septal ratio 10.6 ratio - LV E:e' lateral ratio 10.6 ratio - Name Value Normal Range AV Vmax 1.2 m/sec - AV VTI 26.3 cm - AV peak gradient 6 mmHg - AV mean gradient 3 mmHg - LVOT Vmax 1.1 m/sec - LVOT VTI 25.1 cm - LVOT peak gradient 4.8 mmHg - LVOT mean gradient 2.7 mmHg - LESVIA Vmax 0.52 m/sec - Name Value Normal Range TR Vmax 2.5 m/sec - TR peak gradient 25 mmHg - RAP 8 mmHg - RVSP 33 mmHg - IVC diameter 2.4 cm - Name Value Normal Range PV Vmax 0.6 m/sec -
[2017-02-06] MEDS: Heparin VIAL(*) 5000 UNITS/ML VIAL (FIVE THOUSAND) SUBCUT SCH (05:18)
[2017-02-06 06:54] LABS: Hematocrit 40 % (42-52); Hemoglobin 13.6 g/dl (14.0-18.0); Mean Corpuscular HGB Conc 34 g/dl (31-36); Mean Corpuscular Hemoglobin 32 pg (27-31); Mean Corpuscular Volume 95 fL (80-94); Mean Platelet Volume 8 um3 (7.4-10.4); Red Cell Distribution Width 14 % (10.5-15); White Blood Count 7.2 10^3/ul (3.5-10.8)
[2017-02-06 07:16] LABS: BUN/Creatinine Ratio 20.2 (8-20); Calcium 8.1 mg/dL (8.6-10.3); EGFR African American 82.5 (>60); EGFR Non-African American 64.1 (>60); Potassium 3.8 mmol/L (3.5-5.0)
[2017-02-06] MEDS: Cholecalciferol TAB* 400 UNIT PO SCH (07:24)
[2017-02-06] MEDS: Atenolol TAB* 25 MG PO SCH (07:24)
[2017-02-06] MEDS: SIMVASTATIN 20 MG PO SCH (07:24)
[2017-02-06] MEDS: Aspirin EC Low Dose* 81 MG TAB.EC PO SCH (07:24)
[2017-02-06] MEDS: Mometasone 220 MCG MDI INH SCH (08:05)
--- NOTE | 2017-02-06 09:25 | PN ---
Subjective Date of Service: 02/06/17 Interval History: Patient seen and examined at bedside. Mr. Hogue endorses no new complaints. Denies fever/chills, CP, SOB, abd pain, n/v. Reports that his bladder and stomach feel better after mata inserted. He also reports his legs feel stronger, and he has been doing well with his walker. Family History: Unchanged from Admission Social History: Unchanged from Admission Past Medical History: Unchanged from Admission Objective Active Medications: Acetaminophen (Tylenol Tab*) 650 mg PO Q4H PRN PRN Reason: FEVER/PAIN Albuterol (Ventolin Hfa Inhaler*) 2 puff INH Q4H PRN PRN Reason: WHEEZING Aspirin (Aspirin Ec Low Dose*) 81 mg PO DAILY [facility] Last Admin: 02/06/17 07:24 Dose: 81 mg Atenolol (Tenormin Tab*) 12.5 mg PO DAILY [facility] Last Admin: 02/06/17 07:24 Dose: 12.5 mg Cholecalciferol (Vitamin D Tab*) 400 unit PO DAILY [facility] Last Admin: 02/06/17 07:24 Dose: 400 unit Heparin Sodium (Porcine) (Heparin Vial(*)) 5,000 units SUBCUT Q8HR [facility] Last Admin: 02/06/17 05:18 Dose: 5,000 units Ceftriaxone Sodium 1,000 mg/ (Sodium Chloride) 50 mls @ 200 mls/hr IVPB Q24H [facility] Last Admin: 02/05/17 20:19 Dose: 200 mls/hr Mometasone Furoate (Asmanex 220 Mcg Mdi *) 1 puff INH BID [facility] PRN Reason: Protocol Last Admin: 02/06/17 08:05 Dose: 1 puff Simvastatin (Zocor(Nf)) 20 mg PO DAILY [facility] Last Admin: 02/06/17 07:24 Dose: 20 mg Vital Signs 02/05/17 02/05/17 02/05/17 11:40 16:40 20:00 Temperature 98.1 F 98.1 F Pulse Rate 63 61 Respiratory 16 20 18 Rate Blood Pressure 131/64 128/68 (mmHg) O2 Sat by Pulse 97 96 Oximetry 02/05/17 02/05/17 02/05/17 20:16 22:45 22:56 Temperature 98.6 F 98.2 F 98.2 F Pulse Rate 61 62 62 Respiratory 18 18 18 Rate Blood Pressure 136/63 119/58 119/58 (mmHg) O2 Sat by Pulse 95 95 95 Oximetry 02/05/17 02/06/17 02/06/17 23:34 07:14 08:06 Temperature 97.8 F 97.6 F Pulse Rate 61 57 56 Respiratory 16 16 16 Rate Blood Pressure 125/35 138/60 (mmHg) O2 Sat by Pulse 94 98 98 Oximetry 02/06/17 09:05 Temperature Pulse Rate Respiratory 18 Rate Blood Pressure (mmHg) O2 Sat by Pulse Oximetry Oxygen Devices in Use Now: None Appearance: Elderly male, lying in bed, NAD Eyes: PERRLA Ears/Nose/Mouth/Throat: Mucous Membranes Moist Neck: NL Appearance and Movements; NL JVP Respiratory: Symmetrical Chest Expansion and Respiratory Effort, Clear to Auscultation Cardiovascular: NL Sounds; No Murmurs; No JVD, RRR Abdominal: NL Sounds; No Tenderness; No Distention Extremities: - - +1 BLE edema Neurological: Alert and Oriented x 3, NL Muscle Strength and Tone Lines/Tubes/Other Access: Clean, Dry and Intact Peripheral IV Nutrition: Taking PO's Result Diagrams: 02/06/17 06:32 02/06/17 06:32 Additional Lab and Data: Lab Results 02/04/17 02/04/17 02/04/17 Range/Units 09:00 09:00 09:00 WBC 23.3 H (3.5-10.8) 10^3/ul RBC 4.91 (4.0-5.4) 10^6/ul Hgb 15.4 (14.0-18.0) g/dl Hct 47 (42-52) % MCV 96 H (80-94) fL MCH 31 (27-31) pg MCHC 33 (31-36) g/dl RDW 14 (10.5-15) % Plt Count 192 (150-450) 10^3/ul MPV 8 (7.4-10.4) um3 Neut % (Auto) 92.7 H (38-83) % Lymph % (Auto) 1.5 L (25-47) % [place] % (Auto) 5.5 (1-9) % Eos % (Auto) 0 (0-6) % Baso % (Auto) 0.3 (0-2) % Absolute Neuts (auto) 21.6 H (1.5-7.7) 10^3/ul Absolute Lymphs (auto) 0.4 L (1.0-4.8) 10^3/ul Absolute Monos (auto) 1.3 H (0-0.8) 10^3/ul Absolute Eos (auto) 0 (0-0.6) 10^3/ul Absolute Basos (auto) 0.1 (0-0.2) 10^3/ul Absolute Nucleated RBC 0 10^3/ul Nucleated RBC % 0 ESR Pending INR (Anticoag Therapy) 1.02 (0.89-1.11) APTT 29.2 (26.0-36.3) seconds Sodium 137 (133-145) mmol/L Potassium 4.7 (3.5-5.0) mmol/L Chloride 100 L (101-111) mmol/L Carbon Dioxide 28 (22-32) mmol/L Anion Gap 9 (2-11) mmol/L BUN 27 H (6-24) mg/dL Creatinine 1.69 H (0.67-1.17) mg/dL Est GFR ( Amer) 49.7 (>60) Est GFR (Non-Af Amer) 38.7 (>60) BUN/Creatinine Ratio 16.0 (8-20) Glucose 132 H (70-100) mg/dL Lactic Acid (0.5-2.0) mmol/L Calcium 9.2 (8.6-10.3) mg/dL Total Bilirubin 0.90 (0.2-1.0) mg/dL AST 25 (13-39) U/L ALT 21 (7-52) U/L Alkaline Phosphatase 77 (34-104) U/L Total Creatine Kinase 172 (10-223) U/L Troponin I Pending C-Reactive Protein 59.46 H (< 5.00) mg/L B-Natriuretic Peptide ( - 100) pg/mL Total Protein 6.9 (6.4-8.9) g/dL Albumin 3.8 (3.2-5.2) g/dL Globulin 3.1 (2-4) g/dL Albumin/Globulin Ratio 1.2 (1-3) 02/04/17 02/04/17 Range/Units 09:00 09:00 WBC (3.5-10.8) 10^3/ul RBC (4.0-5.4) 10^6/ul Hgb (14.0-18.0) g/dl Hct (42-52) % MCV (80-94) fL MCH (27-31) pg MCHC (31-36) g/dl RDW (10.5-15) % Plt Count (150-450) 10^3/ul MPV (7.4-10.4) um3 Neut % (Auto) (38-83) % Lymph % (Auto) (25-47) % [place] % (Auto) (1-9) % Eos % (Auto) (0-6) % Baso % (Auto) (0-2) % Absolute Neuts (auto) (1.5-7.7) 10^3/ul Absolute Lymphs (auto) (1.0-4.8) 10^3/ul Absolute Monos (auto) (0-0.8) 10^3/ul Absolute Eos (auto) (0-0.6) 10^3/ul Absolute Basos (auto) (0-0.2) 10^3/ul Absolute Nucleated RBC 10^3/ul Nucleated RBC % ESR INR (Anticoag Therapy) (0.89-1.11) APTT (26.0-36.3) seconds Sodium (133-145) mmol/L Potassium (3.5-5.0) mmol/L Chloride (101-111) mmol/L Carbon Dioxide (22-32) mmol/L Anion Gap (2-11) mmol/L BUN (6-24) mg/dL Creatinine (0.67-1.17) mg/dL Est GFR ( Amer) (>60) Est GFR (Non-Af Amer) (>60) BUN/Creatinine Ratio (8-20) Glucose (70-100) mg/dL Lactic Acid 1.9 (0.5-2.0) mmol/L Calcium (8.6-10.3) mg/dL Total Bilirubin (0.2-1.0) mg/dL AST (13-39) U/L ALT (7-52) U/L Alkaline Phosphatase (34-104) U/L Total Creatine Kinase (10-223) U/L Troponin I C-Reactive Protein (< 5.00) mg/L B-Natriuretic Peptide 173 H ( - 100) pg/mL Total Protein (6.4-8.9) g/dL Albumin (3.2-5.2) g/dL Globulin (2-4) g/dL Albumin/Globulin Ratio (1-3) Microbiology and Other Data: Microbiology 02/04/17 11:15 Influenza Types A,B Antigen (JAMILAH) - Final Nasal Specimen received for Influenza A/B Molecular testing Assess/Plan/Problems-Billing Assessment: Mr. Hogue is an 86 yo male with a PMH of CAD, HTN, HLD, and asthma who presented to the ED on 02/04 with concern for weakness and URI symptoms and was found to have concern for lung mass, ALEJANDRINA, and elevated troponins. - Patient Problems (1) Weakness Code(s): R53.1 - WEAKNESS Comment: Improved Appears secondary to dehydration and acute illness No acute rehab needs, patient will be referred for home PT. (2) Bladder outlet obstruction Code(s): N32.0 - BLADDER-NECK OBSTRUCTION Comment: Renal US shows right sided hydronephrosis on the basis of bladder outlet obstruction. Patient with acute urinary retention. Mata catheter placed. [facility] called and outpatient referral for follow-up requested. (3) Acute urinary retention Code(s): R33.8 - OTHER RETENTION OF URINE Comment: Patient reports urinary frequency, dribbling, and incontinence. Patient's PVR last evening was >700mL. Mata catheter placed. Patient will be discharged to home with catheter and will follow-up with Urology. (4) Pulmonary nodule, left Code(s): R91.1 - SOLITARY PULMONARY NODULE Comment: CT abd/pelvis negative for other concerning lesions Outpatient follow-up with PCP for FNA of left lower lobe nodule (5) Acute kidney injury Code(s): N17.9 - ACUTE KIDNEY FAILURE, UNSPECIFIED Comment: Resolved. Urine sodium and urine creatinine still pending but suspect secondary to hypovolemia and bladder outlet obstruction/urinary retention. (6) Elevated troponin Code(s): R74.8 - ABNORMAL LEVELS OF OTHER SERUM ENZYMES Comment: Echocardiogram shows preserved EF 50-55% with systolic function on lower end of normal. Patient has no wall motion abnormalities or hypokinesis. Patient denies chest pain. Suspect secondary to demand ischemia and slow resolution secondary to ALEJANDRINA. (7) CAD (coronary artery disease) Code(s): I25.10 - ATHSCL HEART DISEASE OF [place] CORONARY ARTERY W/O ANG PCTRS Comment: Continue ASA, atenolol, and simvastatin. (8) HTN (hypertension) Code(s): I10 - ESSENTIAL (PRIMARY) HYPERTENSION Comment: Normotensive Continue atenolol. (9) HLD (hyperlipidemia) Code(s): E78.5 - HYPERLIPIDEMIA, UNSPECIFIED Comment: Continue simvastatin. (10) DVT prophylaxis Code(s): [id number] - Comment: SQ heparin (11) Full code status Code(s): Z78.9 - OTHER SPECIFIED HEALTH STATUS Status and Disposition: Inpatient admission. D/c to home.
[2017-02-06] MEDS ORDERED: Tamsulosin CAP* 0.4 MG PO SCH (10:00)
[2017-02-06] MEDS ORDERED: ceFUROXime TAB(*) 250 MG PO ONE (10:40)
[2017-02-06 11:13] LABS: Urine Bacteria Absent (Absent); Urine Bilirubin Negative (Negative); Urine Glucose Negative (Negative); Urine Nitrite Negative (Negative)
[2017-02-06 11:39] VITALS: BP 119/69
--- NOTE | 2017-02-08 10:48 | DS ---
MEDICINE DISCHARGE SUMMARY: DATE OF ADMISSION: 02/04/17 DATE OF DISCHARGE: 02/06/17 PRIMARY CARE PHYSICIAN: Gwyn Ghosh MD PROVIDER: Cortney Serna NP ATTENDING PHYSICIAN: Lian Gross MD* (dictated by Cortney Serna NP) PRIMARY DISCHARGE DIAGNOSES: 1. Urinary retention secondary to bladder outlet obstruction. 2. Weakness secondary to upper respiratory infection and dehydration. 3. Left lower lobe pulmonary nodule. 4. Acute kidney injury. SECONDARY DISCHARGE DIAGNOSES: 1. Coronary artery disease. 2. Hypertension. 3. Hyperlipidemia. 4. Asthma. MEDICATIONS AT DISCHARGE: 1. Asmanex 1 puff inhaled b.i.d. 2. Simvastatin 20 mg daily. 3. Cholecalciferol 400 units daily. 4. Atenolol 12.5 mg daily. 5. Aspirin 81 mg daily. 6. Albuterol inhaler 2 puffs inhaled q.4 hours p.r.n. 7. Cefuroxime 250 mg b.i.d. This is a new medication. 8. Tamsulosin 0.4 mg at bedtime. This is a new medication. HOSPITAL COURSE OF STAY: For full details, please refer to the H and P provided by Dr. Turner on 02/04/17. In summary, Mr. Hogue is an 86-year-old male presented to the hospital with concern for weakness. The patient reported fever at home. He also states that he had difficulty with ambulation and normally walks with a walker and felt too weak to ambulate independently with his walker. In the ER, the patient did have leukocytosis with a white blood cell count of 23,000 and 9 bands. His BUN and creatinine were also elevated as well as his troponin. Based on these findings, hospital medicine was consulted for admission. The patient was admitted and started on IV hydration. His renal function responded well to IV hydration. In regards to his troponin, the patient did have concerns for ischemia, but his EKG did not show the ischemic changes. His trops did peak at 0.49. We did obtain an echocardiogram, which showed that the patient had a preserved EF of 50% to 55%. No wall motion abnormalities or hypokinesis were seen. The patient does have a left ventricular diastolic sling pattern that is consistent with pseudonormalization. His left ventricular systolic function is at the lower limits of normal. There is no evidence of aortic stenosis. There is a trace of aortic regurgitation. There is a trace of mitral regurgitation. There is a trace of tricuspid regurgitation. No pulmonary hypertension is noted. There is no significant pericardial effusion. There is mild dilatation in the ascending aorta. In regards to patient's respiratory status here in the hospital, he did have a chest x-ray, which did show concern for nodular opacification in the left lung base. A CT of the chest was ordered, which did show concern for a 2.6 cm spiculate nodule at the left lung base corresponding to the plain film findings. Concerning for neoplasm. Recommend consideration of correlation with PET/CT in order to issue sampling. These findings were discussed with the patient and he was advised to follow up with his PCP, so an outpatient biopsy could be performed. The patient verbalized understanding. In regards to the patient's weakness and acute kidney injury, there is also concern for urinary retention. The patient's urinalysis was concerning for infection and he did have trace leukocyte esterase, wbc's, and bacteria in his urine. He was given Levaquin and then switched to ceftriaxone. We did have to repeat the sample to get his original sample that showed contamination in the culture. His follow up UA did show leukocyte esterase as well. The patient had the CT of the abdomen and pelvis additionally to look for additional neoplasm. The CT was negative for any acute findings concerning for neoplasms; however, I did note that the patient's prostate gland is markedly enlarged and that he has right-sided hydronephrosis. A renal ultrasound was then ordered, which showed moderate right-sided hydronephrosis likely in the basis of bladder outlet obstruction. There is no left-sided hydronephrosis; however, the bladder was noted to be distended. Though the prevoid volume of 1173 mL noted on the ultrasound. We did do pre and postvoid residuals and found that the patient was retaining 700 mL in his bladder after voiding. Given his bladder outlet obstruction, we did discuss with the patient the need to be discharged with a Monae catheter and to follow up with [facility]. The patient verbalized understanding of this and was in agreement. He did report relief in abdominal pressure and back pain following the Monae catheter placement. Teaching was provided to the patient in regards to care for this. I did call [facility] to set up an appointment and they will call the patient to schedule his followup in the outpatient setting. In regards to the patient's ambulation, he did work with PT while he was here. The patient was recommended to get a Rollator walker, which was ordered and delivered to the patient prior to discharge. He was also referred to home physical therapy. CONCERNS AT DISCHARGE: Mr. Hogue will be discharged to home on 02/06/17 with a followup with Dr. Ghosh on 09 of February. He will also follow up with [facility] and they will call him for an appointment. DIET: Heart-healthy diet. ACTIVITY: As tolerated. The patient used to use his walker. CONDITION: Improved, stable. DISPOSITION: To home. TIME SPENT: Time spent on this discharge was approximately 45 minutes. Again, this is only a brief summary of the patient's hospital course of stay. For full details, please refer to the full medical record. If you have any further questions or need further assistance, please feel free to contact me at [phone]. CORTNEY SERNA NP CC: Lian Gross MD; Gwyn Ghosh MD* [id number]/[facility] #: [id number] MTDPerez
== END 2017-02-06 14:25 | disposition home or self-care (01) | DRG 684 ==
LOC: ED 08:15 → MEDTELE 10:17 → MED 02-05 23:12
PROVIDERS: ADMIT Hospitalist; ATTEND Internal Medicine
DX: N17.9 Acute kidney failure, unspecified (principal); E86.0 Dehydration; I11.9 Hypertensive heart disease without heart failure; J06.9 Acute upper respiratory infection, unspecified; N13.30 Unspecified hydronephrosis; R53.1 Weakness; N32.0 Bladder-neck obstruction; R33.8 Other retention of urine; R91.1 Solitary pulmonary nodule; R74.8 Abnormal levels of other serum enzymes; E78.5 Hyperlipidemia, unspecified; I25.10 Atherosclerotic heart disease of native coronary artery without angina pectoris; J45.909 Unspecified asthma, uncomplicated; Z79.82 Long term (current) use of aspirin; Z79.899 Other long term (current) drug therapy; Z88.8 Allergy status to other drugs, medicaments and biological substances; Z82.49 Family history of ischemic heart disease and other diseases of the circulatory system; Z80.3 Family history of malignant neoplasm of breast; Z80.0 Family history of malignant neoplasm of digestive organs
CPT/HCPCS: 36415; 71010; 71250; 74176; 76775; 80048; 80053; 81003; 81015; 82550; 82570; 83605; 83880; 84300; 84484; 85025; 85610; 85652; 85730; 86140; 87040; 87086; 87502; 93005; 93306; 94640; 94760; A9270-GY; J0696; J1644

== ENCOUNTER 2017-02-14 22:07 | Emergency (ER) | payer MEDICARE ==
[2017-02-15 01:09] LABS: Hematocrit 45 % (42-52); Hemoglobin 14.8 g/dl (14.0-18.0); Mean Corpuscular HGB Conc 33 g/dl (31-36); Mean Corpuscular Hemoglobin 32 pg (27-31); Mean Corpuscular Volume 97 fL (80-94); Mean Platelet Volume 8 um3 (7.4-10.4); Red Blood Count 4.67 10^6/ul (4.0-5.4); Red Cell Distribution Width 14 % (10.5-15); White Blood Count 11.5 10^3/ul (3.5-10.8)
--- NOTE | 2017-02-15 01:19 | ED ---
kallie Quintanilla Timothy, scribed for Austin Zamudio MD on 02/15/17 at 0020 . GI/ HPI - HPI Summary HPI Summary: Kandis Hogue is an 86 yo male presenting to [facility] with bleeding around his meatus at 2044 this evening with 3/10 pain. Pt was admitted to [facility] 02/04/17 for a bladder infection and discharged 02/06/[address] His MHx includes CAD, OK, coronary stent, HTN, CVA, asthma, kidney stones, arthritis. - History of Current Complaint Chief Complaint: EDUrogenitalProblems Time Seen by Provider: 02/15/17 00:15 Stated Complaint: CATHETER, Hemorrhaging Hx Obtained From: Patient Onset/Duration: Started Hours Ago Timing: Constant Severity: Moderate Current Severity: Moderate Pain Intensity: 3 Additional Locations for Males: Penis - meatus Associated Signs and Symptoms: Positive: Other: - bleeding at catheter entry point - Additional Pertinent History Primary Care Physician: [id number] - Allergy/Home Medications Allergies/Adverse Reactions: Allergies Allergy/AdvReac Type Severity Reaction Status Date / Time Atorvastatin [From Lipitor] Allergy Unknown Unknown Verified 02/14/17 22:20 Reaction Details Clopidogrel Allergy Rash Verified 02/14/17 22:20 PMH/Surg Hx/FS Hx/Imm Hx Cardiovascular History: Reports: Hx Coronary Artery Disease, Hx Hypertension Denies: Hx Congestive Heart Failure Respiratory History: Reports: Hx Asthma History: Reports: Hx Kidney Stones Musculoskeletal History: Reports: Hx Arthritis Sensory History: Reports: Hx Contacts or Glasses Denies: Hx Hearing Aid Opthamlomology History: Reports: Hx Contacts or Glasses - Surgical History Surgery Procedure, Year, and Place: cholecystectomy. tonsillectomy. right cataract removal Infectious Disease History: Denies: Traveled Outside the [place] in Last 30 Days - Family History Known Family History: Positive: Cardiac Disease, Other - CA Negative: Diabetes Family History: His father at age 88 of congestive heart failure, only had initial symptoms of heart disease maybe one year earlier. No one else in the family has heart disease. His mother of some cancer at age 42. - Social History Alcohol Use: None Substance Use Type: Reports: None Smoking Status (MU): Never Smoked Tobacco Review of Systems Constitutional: Negative Eyes: Negative ENT: Negative Cardiovascular: Negative Respiratory: Negative Gastrointestinal: Negative Genitourinary: Other - bleeding at catheter entry point Musculoskeletal: Negative Skin: Negative Neurological: Negative Psychological: Normal All Other Systems Reviewed And Are Negative: Yes Physical Exam Triage Information Reviewed: Yes Vital Signs On Initial Exam: Initial Vitals Temp Pulse Resp BP Pulse Ox 97.4 F 66 16 146/76 96 02/14/17 22:10 02/14/17 22:10 02/14/17 22:10 02/14/17 22:10 02/14/17 22:10 Vital Signs Reviewed: Yes Appearance: Positive: Well-Appearing, No Pain Distress Skin: Positive: Warm Head/Face: Positive: Normal Head/Face Inspection Eyes: Positive: IZA ENT: Positive: Hearing grossly normal Neck: Positive: Supple Respiratory/Lung Sounds: Positive: Breath Sounds Present Cardiovascular: Positive: RRR Abdomen Description: Positive: Nontender, Soft, Splenomegaly - catheter with some blood arund meatus, Other: Bowel Sounds: Positive: Present Musculoskeletal: Positive: Strength/ROM Intact Neurological: Positive: Alert, Oriented to Person Place, Time Diagnostics - Vital Signs Vital Signs Temp Pulse Resp BP Pulse Ox 02/14/17 23:30 97.4 F 63 16 122/64 96 02/14/17 22:10 97.4 F 66 16 146/76 96 - Laboratory Lab Results: Lab Results 02/15/17 Range/Units 00:57 WBC 11.5 H (3.5-10.8) 10^3/ul RBC 4.67 (4.0-5.4) 10^6/ul Hgb 14.8 (14.0-18.0) g/dl Hct 45 (42-52) % MCV 97 H (80-94) fL MCH 32 H (27-31) pg MCHC 33 (31-36) g/dl RDW 14 (10.5-15) % Plt Count 287 (150-450) 10^3/ul MPV 8 (7.4-10.4) um3 Neut % (Auto) 68.8 (38-83) % Lymph % (Auto) 17.9 L (25-47) % [place] % (Auto) 7.6 (1-9) % Eos % (Auto) 4.5 (0-6) % Baso % (Auto) 1.2 (0-2) % Absolute Neuts (auto) 7.9 H (1.5-7.7) 10^3/ul Absolute Lymphs (auto) 2.1 (1.0-4.8) 10^3/ul Absolute Monos (auto) 0.9 H (0-0.8) 10^3/ul Absolute Eos (auto) 0.5 (0-0.6) 10^3/ul Absolute Basos (auto) 0.1 (0-0.2) 10^3/ul Absolute Nucleated RBC 0.01 10^3/ul Nucleated RBC % 0.1 Result Diagrams: 02/15/17 00:57 02/15/17 00:57 Lab Statement: Any lab studies that have been ordered have been reviewed, and results considered in the medical decision making process. Re-Evaluation - Re-Evaluation First Eval Change: Improved - mata catheter replaced without complication, draining clear urine GIGU Course/Dx - Course Assessment/Plan: Kandis Hogue is an 86 yo male presenting to [facility] with 3/10 pain and bleeding around his meatus at the entry point of a catheter placed 02/[address] [facility] for a bladder infection. After clinical examination and review of his lab studies, he will be discharged home with mata catheter problem with appropriate instructions. - Diagnoses Provider Diagnoses: Mata catheter problem Discharge - Discharge Plan Condition: Improved Disposition: HOME Patient Education Materials: Mata Catheter Placement and Care (ED) Referrals: Gwyn Ghosh MD [Primary Care Provider] - 2 Days Cornell Verma MD [Medical Doctor] - 2 Days Additional Instructions: Please follow up with Milan Verma and your primary care physician regarding your visit to the emergency department today. Return to the emergency department with any new or recurring symptoms. The documentation as recorded by the kallie bolton Timothy accurately reflects the service I personally performed and the decisions made by , Austin Zamudio MD.
[2017-02-15 01:22] LABS: BUN/Creatinine Ratio 16.2 (8-20); Calcium 9.4 mg/dL (8.6-10.3); EGFR Non-African American 59.1 (>60); Potassium 4.6 mmol/L (3.5-5.0)
[2017-02-15 01:37] VITALS: BP 149/84
[2017-02-15 01:54] LABS: Urine Bacteria 1+ (Absent); Urine Bilirubin Negative (Negative); Urine Glucose Negative (Negative); Urine Nitrite Negative (Negative)
== END 2017-02-15 01:58 | disposition home or self-care (01) ==
LOC: ED 22:07
DX: T83.83XA Hemorrhage due to genitourinary prosthetic devices, implants and grafts, initial encounter (principal); Y84.6 Urinary catheterization as the cause of abnormal reaction of the patient, or of later complication, without mention of misadventure at the time of the procedure; Y92.9 Unspecified place or not applicable; I25.10 Atherosclerotic heart disease of native coronary artery without angina pectoris; I25.2 Old myocardial infarction; I10 Essential (primary) hypertension; Z86.73 Personal history of transient ischemic attack (TIA), and cerebral infarction without residual deficits; Z87.442 Personal history of urinary calculi
CPT/HCPCS: 36415; 80048; 81003; 81015; 85025; 87086; 99283

== ENCOUNTER 2018-03-14 09:17 | Observation (INO) | payer MEDICARE ==
--- NOTE | 2018-03-08 04:58 | HP ---
CC: Dr. Gwyn Ghosh * HISTORY AND PHYSICAL: DATE OF PLANNED OPERATION AND SURGERY: 03/14/18 HISTORY OF PRESENT ILLNESS: Mr. Hogue is an 87-year-old white male who is admitted with urinary retention for transurethral resection of the prostate. Mr. Hogue's history goes back to one year ago when he presented in January 2017 to the emergency room at [facility] with fever and weakness. He was noted at that time to be septic, and his serum creatinine was moderately elevated. He had workup with a CT of the abdomen and pelvis which showed moderate right hydronephrosis, a markedly distended urinary bladder, and an enlarged prostate. He had a Monae catheter placed, draining about 1 liter of urine. He was admitted, treated with IV antibiotics, and ultimately did fine. He was worked up for a mass in his lung, and was not found to be a significant pathology. He was sent home on Monae catheter drainage and was started on finasteride. He was then worked up in my office with a cystoscopy which showed a large obstructing prostate, and urodynamic studies which showed impaired detrusor contractions and he failed a trial of voiding. 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 The urodynamic studies were repeated 2 months ago. They showed recovery of the detrusor muscle and he had a detrusor voiding pressure of 70 cm of water making him a candidate for TURP. He was then evaluated by Dr. Ghosh because of history of asthma. Because of history of coronary artery disease, he had a Cardiology work-up by Dr Spencer, with a nuclear stress test and echocardiogram, and he was cleared for TURP. I am including Dr. Spencer's cardiology consult note. I am also including the note of Dr. Ghosh who also cleared him for the surgery. PAST MEDICAL HISTORY / SYSTEM REVIEW: The patient has history of asthma, past history of coronary artery disease requiring stent placement. MEDICATIONS: He is maintained on the following medications: 1. Finasteride 5 mg daily. 2. Symbicort. 3. Metoprolol 25 mg daily. 4. Simvastatin 40 mg daily. 5. ProAir. 6. Niacin. 7. One baby aspirin per day. ALLERGIES: He reports being allergic to PLAVIX and to LIPITOR. PHYSICAL EXAMINATION GENERAL: Elderly white male who is moderately overweight and who has some difficulty ambulating. VITAL SIGNS: Blood pressure 120/80, pulse 64. LUNGS: Clear. HEART: Regular and rhythmic. No murmur. ABDOMEN: Soft. No masses or tenderness and no CVA tenderness. EXTERNAL GENITALIA: He has a Monae catheter in place draining clear urine. Testes appear normal. RECTAL EXAM: Shows an enlarged, but nonsuspicious prostate. IMPRESSION: 1. Chronic urinary retention, on catheter drainage for an enlarged prostate, and recovery of the detrusor function by urodynamic studies. 2. Asthma. 3. History of coronary artery disease with normal recent nuclear stress test and good ejection fraction. PLAN: Cystoscopy and transurethral resection of the prostate. I discussed the above plans in detail with the patient and his . Some of the potential complications include infection, hematuria, recurrence of the retention, small incident of urinary incontinence. All their questions were answered. [id number]/[facility] #: [id number] SIDRA
[~2018-03-14 09:17] MED LIST: Buffered Lidocaine 0.9% SYRIN* 5 ML/SYR SYRINGE INTRADERM ONE; Famotidine IV* 10 MG/ML 2 ML (20 mg) IV ONE; Gentamicin ADULT (*) 160 MG in NS 0.9% 100 ML* 100 ML IVPB ONE; Ondansetron ODT TAB* 4 MG PO ONE
[2018-03-14] MEDS ORDERED: Dexamethasone IV* 4 MG/ML 1 ML (4 MG) ONE (09:28)
[2018-03-14] MEDS ORDERED: Buffered Lidocaine 0.9% SYRIN* 5 ML/SYR SYRINGE ONE (09:28)
[2018-03-14] MEDS ORDERED: Ondansetron ODT TAB* 4 MG ONE (09:28)
[2018-03-14] MEDS ORDERED: Famotidine IV* 10 MG/ML 2 ML (20 mg) ONE (09:28)
[2018-03-14] MEDS: Dexamethasone IV* 4 MG/ML 1 ML (4 MG) IV SLOW PU ONE (10:17)
[2018-03-14] MEDS ORDERED: cefTRIAXone(*) 1 GM ADVAN/BAG ONE (10:36)
[2018-03-14] MEDS ORDERED: Midazolam* 1 MG/ML 5 ML VIAL (5 MG) ONE (10:59)
[2018-03-14] MEDS ORDERED: fentaNYL* 50 MCG/ML 2 ML VIAL (100 MCG VIAL) IV PRN (11:41)
[2018-03-14] MEDS ORDERED: HYDROmorphone INJ* 1 MG/ML CARPUJECT SYRINGE IV PRN (11:41)
[2018-03-14] MEDS ORDERED: Ondansetron ODT TAB* 4 MG PO PRN (11:41)
[2018-03-14] MEDS ORDERED: DiMENhydriNATE IV* 50 MG/ML VIAL IV PUSH PRN (11:41)
[2018-03-14] MEDS ORDERED: Naloxone* 0.4 MG/ML 1 ML VIAL IV PRN (11:41)
[2018-03-14] MEDS ORDERED: Lidocaine 2% PF* 10 ML AMP ONE (13:15)
[2018-03-14] MEDS ORDERED: Propofol* 10 MG/ML 20 ML BTL IV PUSH ONE (13:15)
[2018-03-14] MEDS ORDERED: PTO:Albuterol HFA INHALER* 8 gm MDI INH PRN (15:44)
[2018-03-14] MEDS ORDERED: Oxybutynin TAB* 5 MG PO PRN (15:51)
[2018-03-14] MEDS ORDERED: oxyCODONE/Acetamin 5/325 MG* TAB PO PRN (15:51)
[2018-03-14] MEDS ORDERED: Lidocaine 2% JELLY* 6 ML JELLY TOPICAL PRN (15:51)
[2018-03-14] MEDS ORDERED: PTO:Budesonide/Formote 160/4.5(NF) MDI INH PRN (21:00)
[2018-03-14] MEDS ORDERED: NS 0.9% 100 ML* 100 ML ONE (21:45)
[2018-03-14] MEDS: Sulfamethox/Trimethoprim DS 800/160* TAB PO SCH (21:48)
[2018-03-14] MEDS ORDERED: Gentamicin ADULT (*) 160 MG in NS 0.9% 100 ML* 100 ML IVPB ONE (22:00)
--- NOTE | 2018-03-15 02:32 | OP ---
CC: Dr. Ghosh * DATE OF OPERATION: 03/14/18 - ROOM #333 DATE OF : 30 SURGEON: Dr. Verma. ANESTHESIOLOGIST: Dr. Gibson Brennan. ANESTHESIA: Spinal. PRE-OP DIAGNOSES: 1. Benign prostatic hyperplasia. 2. Urinary retention due to above. POST-OP DIAGNOSES: 1. Benign prostatic hyperplasia. 2. Urinary retention due to above. OPERATIVE PROCEDURE: 1. Cystoscopy. 2. Transurethral resection of the prostate. INDICATIONS FOR PROCEDURE: Mr. Hogue is an 87-year-old white male who went into urinary retention 1 year ago. At that time, he had 1 L residual urine and was managed with catheter drainage. He had been maintained on finasteride. Urodynamic studies done last year showed impaired detrusor contraction and flaccid neurogenic bladder and he was kept on catheter drainage. He was reevaluated about 2 months ago and urodynamic studies showed recovery of the detrusor function. After clearance by his primary care physician, Dr. Ghosh, and by Cardiology, by Dr. Allen, TURP was advised and accepted. PATHOLOGY AT CYSTOSCOPY: The penile and bulbar urethrae looked normal. The prostatic urethra measured 4 cm in length and there was significant degree of obstruction by bilobar hyperplasia of the prostate. Examination of the bladder showed diffuse heavy trabeculations. No suspicious bladder lesion seen. No calculi or diverticula were noted. 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 DESCRIPTION OF PROCEDURE: After successful spinal anesthesia, the patient was placed in the lithotomy position and was prepped and draped for a cystoscopy. Cystoscopy was performed. The bladder was carefully inspected and the above findings were noted. The resectoscope was then introduced inside the bladder. Mannitol sorbitol solution was used for irrigation and the inflow and outflow were adjusted to avoid overdistention of the bladder. The elevated bladder neck and the protruding portion of the lateral lobes into the bladder were resected circumferentially. The resectoscope was then positioned in the mid prostatic urethra and circumferential resection of the prostate adenoma was then performed. The resectoscope was then positioned at the level of the veru. Resection of the left lateral lobe was performed first. The right lobe was then resected. The apical and the anterior tissue were resected. As mentioned earlier, the prostate was vascular and a fair amount of time was spent controlling the venous and arterial bleeders during the resection. At the completion of the resection, the prostatic fossa was opened. There was still adenomatous tissue, but it was felt not to be obstructing. There was good hemostasis. The verumontanum, the external sphincter, the capsule, the bladder, and the ureteral orifices were all intact. There were no open sinuses and no deep cuts into the capsule. After all the prostate chips were evacuated and after a final inspection, which showed no bleeding and adequate bladder outlet, the resectoscope was removed and a size 22-[place] Monae catheter was passed inside the bladder and the balloon inflated with 40 mL of water. Irrigation yielded clear returns. The Monae catheter was then placed under gentle traction and taped to the right thigh of the patient. The patient tolerated the procedure well and left the operating room in good condition. All the irrigation fluid used was accounted for indicating no absorption. The specimen was prostate chips. [id number]/[facility] #: [id number] SIDRA
[2018-03-15 08:38] VITALS: BP 110/57
[2018-03-15] MEDS ORDERED: Niacin ER TAB* 500 MG PO SCH (09:00)
[2018-03-15] MEDS ORDERED: CMC:Simvastatin TAB(NF) 20 MG TAB PO SCH (09:00)
[2018-03-15] MEDS ORDERED: Finasteride TAB* 5 MG PO SCH (09:00)
[2018-03-15] MEDS ORDERED: Metoprolol Tartrate TAB* 25 MG PO SCH (09:00)
[2018-03-15] MEDS ORDERED: Cholecalciferol TAB* 1000 UNITS PO SCH (09:00)
[2018-03-15] MEDS: Sulfamethox/Trimethoprim DS 800/160* TAB PO SCH (09:12)
--- NOTE | 2018-03-15 21:18 | DS ---
DISCHARGE SUMMARY: DATE OF ADMISSION: 03/14/18 DATE OF DISCHARGE: 03/15/18 FINAL DIAGNOSES: 1. Benign prostatic hyperplasia. 2. Urinary retention due to benign prostatic hyperplasia. 3. Coronary artery disease. 4. Asthma. OPERATION: Transurethral resection of the prostate on 03/14/18. HISTORY: Mr. Hogue is an 87-year-old white male, who went into urinary retention 1 year ago. At that time, he had a workup with cystoscopy, which showed a large obstructing prostate and urodynamic studies, which showed a poor detrusor contractions, which made him not a candidate for prostatectomy. The patient was kept on catheter drainage with the Monae replaced once a month. He also had been maintained on finasteride. He was reevaluated for his bladder function 2 months ago. Urodynamic studies showed recovery of the detrusor function and his voiding detrusor pressure was 70 cm of water making him a good candidate for transurethral resection of the prostate. The patient had medical clearance by Dr. Ghosh, his primary care physician, and by Dr. Allen, his classifications officer cc/cm. He is admitted for transurethral resection of the prostate. PAST MEDICAL HISTORY AND SYSTEM REVIEW: He has asthma and has history of coronary artery disease. He has hyperlipidemia. MEDICATIONS: He is maintained on the following medications: 1. Finasteride 5 mg daily. 2. Symbicort. 3. Metoprolol 25 mg daily. 4. Simvastatin 40 mg daily. 5. ProAir. 6. Niacin. 7. Baby aspirin. ALLERGIES: He reports being allergic to PLAVIX and to LIPITOR. LAB WORK: Preoperative lab work was within normal. His urine culture grew MRSA that was sensitive to Bactrim and to gentamicin. PREOPERATIVE PHYSICAL EXAMINATION: Showed an elderly white male, who is overweight and has difficulty ambulating. Blood pressure 120/80, pulse of 64. Exam of the heart and lungs was normal. Rectal exam showed large, but benign feeling prostate. COURSE IN HOSPITAL: The patient was admitted the morning of his surgery. He was given intravenous gentamicin preoperatively. He underwent an uncomplicated transurethral resection of the prostate. The prostate was large and vascular, but at the end of resection, the prostate fossa was opened and he should be able to void spontaneously. He was kept overnight for observation. He did very well, remained afebrile and urine was clear. The patient is being discharged home on his preoperative medications and on Bactrim for 1 week. He will be seen in the office next week for Monae catheter removal. Pathology on the resected prostate tissue was benign. [id number]/[facility] #: [id number] MTDPerez
== END 2018-03-15 11:40 | disposition home or self-care (01) ==
LOC: OR 09:17 → SSU 15:22
PROVIDERS: ADMIT Urology; ATTEND Urology
PROC: 0TJB8ZZ Inspection of Bladder, Via Natural or Artificial Opening Endoscopic (ICD-10-PCS; 2018-03-14)
PROC: 0VT08ZZ Resection of Prostate, Via Natural or Artificial Opening Endoscopic (ICD-10-PCS; principal; 2018-03-14 10:45)
DX: N40.1 Benign prostatic hyperplasia with lower urinary tract symptoms (principal); R33.8 Other retention of urine; E78.5 Hyperlipidemia, unspecified; I25.10 Atherosclerotic heart disease of native coronary artery without angina pectoris; J45.909 Unspecified asthma, uncomplicated; Z79.899 Other long term (current) drug therapy; Z79.82 Long term (current) use of aspirin; Z88.8 Allergy status to other drugs, medicaments and biological substances; Z95.5 Presence of coronary angioplasty implant and graft
CPT/HCPCS: 88305; A9270-GY; G0378; J0696; J1100; J1580; J2001; J2250; J2704

== ENCOUNTER → 2018-10-15 17:52 | Emergency (ER) | payer MEDICARE ==
[~2018-10-15 17:52] MED LIST changes: -Buffered Lidocaine 0.9% SYRIN* 5 ML/SYR SYRINGE INTRADERM ONE; -Famotidine IV* 10 MG/ML 2 ML (20 mg) IV ONE; -Gentamicin ADULT (*) 160 MG in NS 0.9% 100 ML* 100 ML IVPB ONE; +Lidocaine 2% JELLY* 10 ML JELLY TOPICAL ONE; -Ondansetron ODT TAB* 4 MG PO ONE; +Sulfamethox/Trimethoprim DS 800/160* TAB PO ONE
--- NOTE | 2018-10-15 19:42 | ED ---
GI/ HPI - HPI Summary HPI Summary: Patient is a 88 y/o M presenting to ED with complaints of inability to drain urine from Alexander catheter, bladder fullness, and bladder spasms. Patient has a Alexander catheter in place, states that it stopped draining this morning. He is concerned that catheter is blocked. He has been experiencing bladder fullness and painful bladder spasms as well. Patient notes that catheter has started to leak amounts of urine but he is still experiencing bladder spasms. Alexander catheter was placed two weeks ago, he notes that he was draining blood a few days after the catheter was placed. He denies abdominal pain. On triage, pain is rated 7/10, nothing is noted to aggravate/alleviate Sx. Home medications and allergies are reviewed. - History of Current Complaint Chief Complaint: EDUrogenitalProblems Time Seen by Provider: 10/15/18 19:25 Stated Complaint: CATHETER COMPLICATIONS Hx Obtained From: Patient Onset/Duration: Started Hours Ago - this morning, Still Present - notes that he is draining some urine Timing: Lasting Hours - this morning Severity: Severe - 7/10 Current Severity: Severe - 7/10 Pain Intensity: 7 Location of Pain: Suprapubic - bladder spasms Pain Characteristics: Other: - spasms Associated Signs and Symptoms: Positive: Other: - bladder spasms, bladder fullness, inability to drain urine from Alexander catheter. Negative: Abdominal Pain Aggravating Factor(s): Nothing Alleviating Factor(s): Nothing - Additional Pertinent History Primary Care Physician: [id number] - Allergy/Home Medications Allergies/Adverse Reactions: Allergies Allergy/AdvReac Type Severity Reaction Status Date / Time atorvastatin Allergy Unknown Unknown Verified 10/15/18 18:09 Reaction Details clopidogrel Allergy Unknown Rash Verified 10/15/18 18:09 PMH/Surg Hx/FS Hx/Imm Hx Cardiovascular History: Reports: Hx Coronary Artery Disease, Hx Hypertension Denies: Hx Congestive Heart Failure Respiratory History: Reports: Hx Asthma GI History: Reports: Hx Hiatal Hernia - occassional, Hx Ulcer - on right buttock - healed- no GI ulcer History: Reports: Hx Kidney Stones Musculoskeletal History: Reports: Hx Arthritis Sensory History: Reports: Hx Contacts or Glasses Denies: Hx Hearing Aid Opthamlomology History: Reports: Hx Contacts or Glasses Neurological History: Reports: Hx Nerve Disease - 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 tonsillectomy. right cataract removal Hx Anesthesia Reactions: No Infectious Disease History: No Infectious Disease History: Reports: Hx of Known/Suspected MRSA Denies: Traveled Outside the [place] in Last 30 Days - Family History Known Family History: Positive: Cardiac Disease, Other - CA Negative: Diabetes Family History: His father at age 88 of congestive heart failure, only had initial symptoms of heart disease maybe one year earlier. No one else in the family has heart disease. His mother of some cancer at age 42. - Social History Alcohol Use: None Substance Use Type: Reports: None Smoking Status (MU): Never Smoked Tobacco Review of Systems Negative: Abdominal Pain Genitourinary: Other - POSITIVE - BLADDER FULLNESS, BLADDER SPASMS, INABILITY TO DRAIN URINE FROM ALEXANDER CATHETER All Other Systems Reviewed And Are Negative: Yes Physical Exam - Summary Physical Exam Summary: Appearance: Well appearing, no pain distress, Alexander catheter is noted Skin: warm, dry, reflects adequate perfusion Head/face: normal Eyes: EOMI, IZA ENT: normal Neck: supple, non-tender Respiratory: CTA, breath sounds present Cardiovascular: RRR, pulses symmetrical Abdomen: non-tender, soft Musculoskeletal: normal, strength/ROM intact Neuro: normal, sensory motor intact, A&Ox3 Triage Information Reviewed: Yes Vital Signs On Initial Exam: Initial Vitals Temp Pulse Resp BP Pulse Ox 97.2 F 64 16 173/96 99 10/15/18 18:05 10/15/18 18:05 10/15/18 18:05 10/15/18 18:05 10/15/18 18:05 Vital Signs Reviewed: Yes Diagnostics - Vital Signs Vital Signs Temp Pulse Resp BP Pulse Ox 10/15/18 18:05 97.2 F 64 16 173/96 99 - Laboratory Lab Statement: Any lab studies that have been ordered have been reviewed, and results considered in the medical decision making process. Re-Evaluation - Re-Evaluation First Eval Re-Evaluation Time: 20:25 Comment: Nurse Greg reports that he has replaced Alexander catheter, states that urine coming out was cloudy in appearance. He also notes the presence of some blood clots. UA sent. GIGU Course/Dx - Course Course Of Treatment: Patient is a 88 y/o M presenting to ED with complaints of inability to drain urine from Alexander catheter, bladder fullness, and bladder spasms. Patient has a Alexander catheter in place, states that it stopped draining this morning. He is concerned that catheter is blocked. He has been experiencing bladder fullness and painful bladder spasms as well. Patient notes that catheter has started to leak amounts of urine but he is still experiencing bladder spasms. Alexander catheter was placed two weeks ago, he notes that he was draining blood a few days after the catheter was placed. He denies abdominal pain. Physical exam is normal, Alexander catheter is noted. Alexander catheter was replaced. Urine coming out was cloudy in appearance. The presence of some blood clots is also noted. UA was obtained. Patient will be discharged to home and is instructed to follow up with PCP, patient is agreeable with this. - Diagnoses Differential Diagnoses - Male: Urinary Tract Infection Provider Diagnoses: Alexander catheter problem, UTI (urinary tract infection) Discharge - Sign-Out/Discharge Documenting (check all that apply): Patient Departure - discharge - Discharge Plan Condition: Stable Disposition: HOME Prescriptions: Sulfamethox/Trimethoprim DS* [Bactrim DS 800/160 TAB*] 1 tab PO BID #20 tab Patient Education Materials: Urinary Tract Infection in Men (ED), Alexander Catheter Placement and Care (ED) Referrals: Gwyn Ghosh MD [Primary Care Provider] - 3 Days Additional Instructions: RETURN TO ED FOR ANY NEW OR WORSENING SYMPTOMS. FOLLOW UP WITH PRIMARY CARE PHYSICIAN WITHIN THREE DAYS. - Billing Disposition and Condition Condition: STABLE Disposition: Home - Attestation Statements Document Initiated by Heena: Yes Documenting Scribe: FRANCISCO OLIVER Provider For Whom Heena is Documenting (Include Credential): ANASTASIA LOPEZ MD Scribe Attestation: IFRANCISCO , scribed for ANASTASIA LOPEZ MD on 10/15/18 at 2103. Scribe Documentation Reviewed: Yes Provider Attestation: The documentation as recorded by the FRANCISCO bolton accurately reflects the service I personally performed and the decisions made by me, ANASTASIA LOPEZ MD Status of Scribe Document: Viewed
[2018-10-15 20:32] LABS: Urine Appearance Cloudy; Urine Bacteria Absent (Absent); Urine Bilirubin Negative (Negative); Urine Blood 3+ (Negative); Urine Color Yellow; Urine Glucose Negative (Negative); Urine Ketones Negative (Negative); Urine Nitrite Positive (Negative); Urine Protein 1+(30 mg/dL) (Negative); Urine Red Blood Cell 3+(>10/hpf) (Absent); Urine Urobilinogen Negative (Negative); Urine White Blood Cell 3+(>20/hpf) (Absent)
[2018-10-15 21:30] VITALS: BP 122/81
== END | disposition home or self-care (01) ==
LOC: ED 17:52
DX: N39.0 Urinary tract infection, site not specified (principal); T85.9XXA Unspecified complication of internal prosthetic device, implant and graft, initial encounter; N32.89 Other specified disorders of bladder
CPT/HCPCS: 81003; 81015; 87077; 87086; 87186; 99282; A9270-GY

== ENCOUNTER 2018-12-04 11:08 | Emergency (ER) | payer MEDICARE ==
[2018-12-04 12:47] LABS: Urine Appearance Cloudy; Urine Bacteria 1+ (Absent); Urine Bilirubin Negative (Negative); Urine Blood 2+ (Negative); Urine Color Yellow; Urine Glucose Negative (Negative); Urine Ketones Negative (Negative); Urine Nitrite Positive (Negative); Urine Protein 1+(30 mg/dL) (Negative); Urine Red Blood Cell 3+(>10/hpf) (Absent); Urine Specific Gravity 1.006 (1.010-1.030); Urine Urobilinogen Negative (Negative); Urine White Blood Cell 3+(>20/hpf) (Absent)
[2018-12-04 13:50] VITALS: BP 129/66
--- NOTE | 2018-12-04 17:46 | ED ---
GI/ HPI - HPI Summary HPI Summary: Pt. is an 88 y.o male who presents to the ER for evaluation of chronic indwelling mata catheter. Pt. states he has had a mata for over a year secondary to BPH. Pt .states mata was changed about one week ago. Pt. states that today he noticed urine was leaking around catheter and he was having pressure to bladder. Pt. denies fever, chills, N/V. Sxs are mild in severity. No current modifying factors. - History of Current Complaint Chief Complaint: EDUrogenitalProblems Time Seen by Provider: 12/04/18 11:12 Stated Complaint: BLOCKAGE IN CATHETER PER EMS Hx Obtained From: Patient Pain Intensity: 0 - Additional Pertinent History Primary Care Physician: DAVE - Allergy/Home Medications Allergies/Adverse Reactions: Allergies Allergy/AdvReac Type Severity Reaction Status Date / Time atorvastatin Allergy Unknown Unknown Verified 12/04/18 11:16 Reaction Details clopidogrel Allergy Unknown Rash Verified 12/04/18 11:16 PMH/Surg Hx/FS Hx/Imm Hx Previously Healthy: Yes Cardiovascular History: Reports: Hx Coronary Artery Disease, Hx Hypertension Denies: Hx Congestive Heart Failure Respiratory History: Reports: Hx Asthma GI History: Reports: Hx Hiatal Hernia - occassional, Hx Ulcer - on right buttock - healed- no GI ulcer History: Reports: Hx Kidney Stones Musculoskeletal History: Reports: Hx Arthritis Sensory History: Reports: Hx Contacts or Glasses Denies: Hx Hearing Aid Opthamlomology History: Reports: Hx Contacts or Glasses Neurological History: Reports: Hx Nerve Disease - 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 tonsillectomy. right cataract removal Hx Anesthesia Reactions: No Infectious Disease History: No Infectious Disease History: Reports: Hx of Known/Suspected MRSA Denies: Traveled Outside the [place] in Last 30 Days - Family History Known Family History: Positive: Cardiac Disease, Other - [place] Negative: Diabetes Family History: His father at age 88 of congestive heart failure, only had initial symptoms of heart disease maybe one year earlier. No one else in the family has heart disease. His mother of some cancer at age 42. - Social History Occupation: Retired Lives: With Family Alcohol Use: None Substance Use Type: Reports: None Smoking Status (MU): Never Smoked Tobacco Review of Systems Constitutional: Negative Negative: Fever, Chills Positive: Other - pelvic pressure Positive: other - catheter issue All Other Systems Reviewed And Are Negative: Yes Physical Exam Triage Information Reviewed: Yes Vital Signs On Initial Exam: Initial Vitals Temp Pulse Resp BP Pulse Ox 97.4 F 74 18 197/99 97 12/04/18 11:11 12/04/18 11:11 12/04/18 11:11 12/04/18 11:11 12/04/18 11:11 Vital Signs Reviewed: Yes Appearance: Positive: Well-Appearing - Pt. sitting up in bed in NAD. Pleasant. present. Skin: Positive: Warm, Dry Head/Face: Positive: Normal Head/Face Inspection Eyes: Positive: Normal, EOMI Neck: Positive: Supple Respiratory/Lung Sounds: Positive: Clear to Auscultation, Breath Sounds Present Cardiovascular: Positive: Normal, RRR Abdomen Description: Positive: Other: - Abd. is soft with pain and distention to bladder. No rebound tenderness or guarding. Neurological: Positive: Normal, CN Intact II-III Psychiatric: Positive: Affect/Mood Appropriate Diagnostics - Vital Signs Vital Signs Temp Pulse Resp BP Pulse Ox 12/04/18 13:49 97.5 F 50 18 129/66 97 12/04/18 11:11 97.4 F 74 18 197/99 97 - Laboratory Lab Results: Lab Results 12/04/18 Range/Units 12:16 Urine Color Yellow Urine Appearance Cloudy Urine pH 8.0 (5-9) Ur Specific [place] 1.006 L (1.010-1.030) Urine Protein 1+(30 mg/dl) A (Negative) Urine Ketones Negative (Negative) Urine Blood 2+ A (Negative) Urine Nitrate Positive A (Negative) Urine Bilirubin Negative (Negative) Urine Urobilinogen Negative (Negative) Ur Leukocyte Esterase 3+ A (Negative) Urine WBC (Auto) 3+(>20/hpf) A (Absent) Urine RBC (Auto) 3+(>10/hpf) A (Absent) Urine Bacteria 1+ A (Absent) Urine Glucose Negative (Negative) Lab Statement: Any lab studies that have been ordered have been reviewed, and results considered in the medical decision making process. GIGU Course/Dx - Course Course Of Treatment: Patient presenting with Mata catheter dysfunction. Is afebrile well-appearing. Nurse attempted to flush catheter without success. Catheter was changed and is draining appropriately. Patient's pain has improved. Urinalysis today is nitrite positive with bacteria. Based on last culture will treat with Bactrim. Advised close follow-up with urologist and return to the ER symptoms change or worsen. - Diagnoses Differential Diagnoses - Male: BPH, Urethritis, Urinary Tract Infection Provider Diagnoses: UTI (urinary tract infection), Mata catheter problem Discharge - Sign-Out/Discharge Documenting (check all that apply): Patient Departure Patient Received Moderate/Deep Sedation with Procedure: No - Discharge Plan Condition: Improved Disposition: HOME Prescriptions: Sulfamethox/Trimethoprim DS* [Bactrim DS 800/160 TAB*] 1 tab PO BID 10 Days #20 tab Patient Education Materials: Catheter-associated Urinary Tract Infection (ED) Referrals: Gwyn Ghosh MD [Primary Care Provider] - Cornell Verma MD [Medical Doctor] - Additional Instructions: Schedule a follow up appointment with your urologist Take antibiotic as directed Return to ER if symptoms change or worsen - Billing Disposition and Condition Condition: IMPROVED Disposition: Home
--- NOTE | 2018-12-06 08:16 | PN ---
Progress Note - Progress Note Date of Service: 12/04/18 Note: Pt. placed on Bactrim for UTI 12/04. Preliminary urine culture growing >100k providencia rettgeri. Pending final culture.
--- NOTE | 2018-12-07 05:56 | PN ---
Progress Note - Progress Note Date of Service: 12/04/18 Note: Urine culture final grew providencia rettgeri 100,000 Patient placed on Bactrim prior to discharge This is sensitive to organism Nothing further is required
== END 2018-12-04 13:49 | disposition home or self-care (01) ==
LOC: ED 11:08
DX: T83.511A Infection and inflammatory reaction due to indwelling urethral catheter, initial encounter (principal); Z96.0 Presence of urogenital implants
CPT/HCPCS: 81003; 81015; 87077; 87086; 87186; 99282

== ENCOUNTER 2018-12-31 08:06 | Emergency (ER) | payer MEDICARE ==
[2018-12-31] MEDS ORDERED: cefTRIAXone VIAL(*) 1,000 MG VIAL IM ONE (08:13)
--- NOTE | 2018-12-31 08:18 | ED ---
GI/ HPI - HPI Summary HPI Summary: Pt is an 88 y/o male brought in by EMS who presents to the ED c/o urinary retention. He has not urinated in 12 hours. Pt has a Monae catheter in place, and there is some urine leaking around the catheter. His catheter was last changed 1 week ago by a home nurse. He is a pt of Dr. Lynn and recently had his prostate scraped. For the past few days hes also had testicular pain and notes a subjective fever this week. Pt denies any abdominal pain. PMHx BPH, neuropathy. Bladder scanner showed the bladder was empty. - History of Current Complaint Stated Complaint: TESTICULAR PAIN PER EMS Hx Obtained From: Patient Onset/Duration: Started Days Ago - About 1 week, Still Present Timing: Constant Current Severity: None Pain Intensity: 0 Additional Locations for Males: Testicles Associated Signs and Symptoms: Positive: Fever, Abdominal Pain, Other: - urinary retention - Additional Pertinent History Primary Care Physician: DAVE - Allergy/Home Medications Allergies/Adverse Reactions: Allergies Allergy/AdvReac Type Severity Reaction Status Date / Time atorvastatin Allergy Unknown Unknown Verified 12/04/18 11:16 Reaction Details clopidogrel Allergy Unknown Rash Verified 12/04/18 11:16 Home Medications: Home Medications Mometasone/Formoter 100/5 MDI* [Dulera 100/5 MDI*] 1 puff INH BID 12/31/18 [ History Confirmed 12/31/18] PMH/Surg Hx/FS Hx/Imm Hx Endocrine/Hematology History: Denies: Hx Diabetes Cardiovascular History: Reports: Hx Coronary Artery Disease, Hx Hypertension Denies: Hx Congestive Heart Failure Respiratory History: Reports: Hx Asthma GI History: Reports: Hx Hiatal Hernia - occassional, Hx Ulcer - on right buttock - healed- no GI ulcer History: Reports: Hx Kidney Stones, Other Problems/Disorders - chronic catheter Musculoskeletal History: Reports: Hx Arthritis Sensory History: Reports: Hx Contacts or Glasses Denies: Hx Hearing Aid Opthamlomology History: Reports: Hx Contacts or Glasses Neurological History: Reports: Hx Nerve Disease - 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 tonsillectomy. right cataract removal. prostate "scraped" 2019 Hx Anesthesia Reactions: No Infectious Disease History: No Infectious Disease History: Reports: Hx of Known/Suspected MRSA Denies: Traveled Outside the [place] in Last 30 Days - Family History Known Family History: Positive: Cardiac Disease, Other - [place] Negative: Diabetes Family History: His father at age 88 of congestive heart failure, only had initial symptoms of heart disease maybe one year earlier. No one else in the family has heart disease. His mother of some cancer at age 42. - Social History Alcohol Use: None Hx Substance Use: No Substance Use Type: Reports: None Hx Tobacco Use: No Smoking Status (MU): Never Smoked Tobacco Review of Systems Positive: Fever Negative: Abdominal Pain Positive: pain - testicular, other - urinary retention All Other Systems Reviewed And Are Negative: Yes Physical Exam - Summary Physical Exam Summary: Appearance: well appearing, no pain distress Skin: warm, dry, reflects adequate perfusion Head/face: normal Eyes: EOMI, IZA ENT: mucous membranes moist Neck: supple, non-tender Respiratory: CTA, breath sounds present Cardiovascular: RRR, pulses symmetrical, 1+ LLE pitting edema, 2+ RLE pitting edema Abdomen: non-tender, soft, 16-Mohawk Monae catheter in place, not draining urine Bowel Sounds: present Musculoskeletal: normal, strength/ROM intact Neuro: normal, sensory motor intact, A&Ox3 : painful mass around right testicle that extends into the base of the penis, left testicle normal Triage Information Reviewed: Yes Vital Signs On Initial Exam: Initial Vitals Temp Pulse Resp BP Pulse Ox 97.3 F 72 16 159/89 97 12/31/18 08:09 12/31/18 08:09 12/31/18 08:09 12/31/18 08:09 12/31/18 08:09 Vital Signs Reviewed: Yes Diagnostics - Vital Signs Vital Signs Temp Pulse Resp BP Pulse Ox 12/31/18 08:09 97.3 F 72 16 159/89 97 - Laboratory Result Diagrams: 12/31/18 09:02 12/31/18 09:02 Lab Statement: Any lab studies that have been ordered have been reviewed, and results considered in the medical decision making process. - Ultrasound No standard instances Ultrasound Interpretation Completed By: Radiologist Summary of Ultrasound Findings: Testicular US: Hypervascular right epididymis which is enlarged. Complex loculated hydrocele is noted in the right scrotum surrounding the right testis. Right epididymitis with infected right hydrocele should BE considered. ED physician reviewed radiology report. Re-Evaluation - Re-Evaluation First Eval Re-Evaluation Time: 08:25 Change: Unchanged Comment: Performed exam. GIGU Course/Dx - Course Course Of Treatment: Nurse's notes reviewed. The patient presents with a nonfunctioning Monae catheter however his bladder on initial evaluation with bladder scan is empty. He has a hard mass in the right hemiscrotum with tenderness. This appears to be either from urine from traumatic placement of Monae catheter 1 week ago or urine with abscess. He has no fever or white count. He was given IV Rocephin and hydrated over the course of an hour. During that time his bladder remained empty as he urine. The urologist was okay with this and wished to not have a Monae placed at this time. They will follow-up with him for likely urethral disruption secondary to traumatic Monae catheter placement. Return precautions given. - Diagnoses Differential Diagnoses - Male: Other - Epididymitis, orchitis, traumatic Monae, urethral injury Provider Diagnoses: Complication of Monae catheter, Urethral tear - Physician Notifications Discussed Care Of Patient With: Fco Ansari Time Discussed With Above Provider: 09:37 Instructed by Provider To: Other - Give the pt 1 L fluids and observe him for an hour. Use the bladder scanner and if the patient is still leaking then do not intervene. If the pt is not leaking put a 12-14 [place] Coude catheter. Discharge - Sign-Out/Discharge Documenting (check all that apply): Patient Departure - Discharge Patient Received Moderate/Deep Sedation with Procedure: No - Discharge Plan Condition: Improved Disposition: HOME Prescriptions: Cephalexin CAP* [Keflex CAP*] 500 mg PO TID #21 cap Patient Education Materials: Epididymitis (ED) Referrals: Gwyn Ghosh MD [Primary Care Provider] - Cornell Verma MD [Medical Doctor] - Additional Instructions: Tylenol for discomfort, warm compresses to the area. Return if you're unable to urinate, have fever, vomiting, uncontrolled discomfort or other concerns. Call the urologist today to schedule prompt follow-up. - Billing Disposition and Condition Condition: IMPROVED Disposition: Home - Attestation Statements Document Initiated by Scribe: Yes Documenting Scribe: Erika Wick Provider For Whom Scribe is Documenting (Include Credential): Shree Dumont MD Scribe Attestation: IErika, scribed for Shree Dumont MD on 12/31/18 at 1449. Scribe Documentation Reviewed: Yes Provider Attestation: The documentation as recorded by the shahrzadibErika blanchard accurately reflects the service I personally performed and the decisions made by Shree madrid MD Status of Scribe Document: Viewed
[2018-12-31] MEDS ORDERED: cefTRIAXone(*) 1 GM in NS 0.9% 50 ML* 50 ML IVPB ONE (08:29)
[2018-12-31 09:16] LABS: ABS Basophils 0.1 10^3/ul (0-0.2); ABS Eosinophils 0.7 10^3/ul (0-0.6); ABS Lymphocytes 1.2 10^3/ul (1.0-4.8); ABS Monocytes 1.4 10^3/ul (0-0.8); ABS Neutrophils 6.4 10^3/ul (1.5-7.7); ABS Nucleated RBC 0 10^3/ul; Eosinophil % 7.3 %; Hematocrit 35 % (36-46); Hemoglobin 11.3 g/dL (14.0-18.0); Lymphocyte % 12.4 %; Mean Corpuscular HGB Conc 33 g/dL (31-36); Mean Corpuscular Hemoglobin 28 pg (27-31); Mean Corpuscular Volume 85 fL (80-94); Mean Platelet Volume 7.8 fL (7.4-10.4); Nucleated Red Blood Cells % 0; Platelet Count 309 10^3/uL (150-450); Red Blood Count 4.09 10^6 /uL (4.18-5.48); Red Cell Distribution Width 16 % (10.5-15); White Blood Count 9.8 10^3/uL (3.5-10.8)
[2018-12-31 09:22] LABS: INR 0.97 (0.77-1.02)
[2018-12-31 09:39] LABS: Albumin 3.3 g/dL (3.2-5.2); Albumin/Globulin Ratio 1.1 (1-3); BUN/Creatinine Ratio 21.7 (8-20); Calcium 8.5 mg/dL (8.6-10.3); EGFR African American 79.8 (>60); EGFR Non-African American 65.9 (>60); Globulin 3.1 g/dL (2-4); Potassium 4.3 mmol/L (3.5-5.0); Total Bilirubin 0.3 mg/dL (0.2-1.0); Total Protein 6.4 g/dL (6.4-8.9)
[2018-12-31] MEDS ORDERED: NS 0.9% 1000 ML** 1,000 ML IV ONE (09:40)
[2018-12-31 10:58] VITALS: BP 166/90
== END 2018-12-31 10:59 | disposition home or self-care (01) ==
LOC: ED 08:06
DX: T83.9XXA Unspecified complication of genitourinary prosthetic device, implant and graft, initial encounter (principal); S37.33XA Laceration of urethra, initial encounter; X58.XXXA Exposure to other specified factors, initial encounter; I10 Essential (primary) hypertension; I25.10 Atherosclerotic heart disease of native coronary artery without angina pectoris; J45.909 Unspecified asthma, uncomplicated; K44.9 Diaphragmatic hernia without obstruction or gangrene; Z88.8 Allergy status to other drugs, medicaments and biological substances
CPT/HCPCS: 36415; 76870; 80053; 85025; 85610; 96361; 96365; 99282; J0696